=== PATIENT | female | born 1995 | race Caucasian/White ===

== ENCOUNTER 2017-02-20 18:48 | Emergency (ER) | payer SELFPAY ==
--- NOTE | 2017-02-20 19:55 | ER Document Report ---
HPI - HPI Patient complains to provider of: bump dorsal right wrist Onset: Last week Onset/Duration: Gradual Context: 21 yo female states that the bump on the dorsal left wrist is painful. wants it cut out. No hx ganglion cyst. States that it started over distal 2nd MC then moved down. - REPRODUCTIVE Reproductive: DENIES: : Past Medical History - General Information source: Patient - Social History Smoking Status: Unknown if Ever Smoked Frequency of alcohol use: None Drug Abuse: None Lives with: Family Family History: Reviewed & Not Pertinent - Medical History Medical History: Negative Surgical Hx: Negative Past Surgical History: Reports: Hx Oral Surgery - Immunizations Immunizations up to date: Yes Hx Diphtheria, Pertussis, Tetanus Vaccination: Yes Vertical Provider Document - CONSTITUTIONAL Agree With Documented VS: Yes Exam Limitations: No Limitations General Appearance: No Apparent Distress - INFECTION CONTROL TRAVEL OUTSIDE OF THE [place] IN LAST 30 DAYS: No - HEENT HEENT: Normocephalic - NECK Neck: Supple - MUSCULOSKELETAL/EXTREMETIES Musculoskeletal/Extremeties: MAEW, FROM, Tender - 8mm ganglion cyst radial side dorsal left wrist, not red. - NEURO Level of Consciousness: Awake, Alert Motor/Sensory: No Motor Deficit, No Sensory Deficit - DERM Integumentary: Warm, Dry Procedures - Immobilization Right Wrist Time completed: 20:35 Pre-Proc Neuro Vasc Exam: Normal Immobilizer type: Cock-up Performed by: PCT Post-Proc Neuro Vasc Exam: Normal Alignment checked and good: Yes Discharge - Discharge Clinical Impression: dorsal left wrist ganglion cyst Condition: Good Disposition: HOME, SELF-CARE Instructions: Ganglion Cyst ([facility]), Temporary Splint ([facility]), Acetaminophen, Anti- Inflammatory Medication ([facility]) Additional Instructions: splint for comfort motrin for pain call and schedule appointment with hand orthopedic surgeon to er any concerns Please complete the patient satisfaction survey if you get one, and return it.. If you do not receive a survey, then you can go to the [facility] website, [email or web address] and place your comments about your very good care. Thank you very much. It was a pleasure being your medical provider today. Prescriptions: Ibuprofen [Motrin 600 mg Tablet] 600 mg PO Q8HP PRN #30 tablet PRN Reason: Referrals: YOLETTE COLLADO DO [ACTIVE STAFF] - Follow up as needed
[2017-02-20 20:40] VITALS: BP 132/79
== END 2017-02-20 20:45 | disposition home or self-care (01) ==
LOC: ER 18:48
DX: M67.432 Ganglion, left wrist (principal)
CPT/HCPCS: 99283; L3984

== ENCOUNTER 2017-12-19 19:03 | Inpatient (IN) | payer MEDICAID ==
[~2017-12-19 19:03] MED LIST: RINGERS SOLUTION,LACTATED 1,000 ML IV ONE; RINGERS SOLUTION,LACTATED 1,000 ML IV PRN
[2017-12-19 20:03] LABS: HEMATOCRIT 34.2 % (36.0-47.0); HEMOGLOBIN 11.1 g/dL (12.0-15.5); MEAN CORPUSCULAR HEMOGLOBIN 27.5 pg (27.0-33.4); MEAN CORPUSCULAR HGB CONC 32.5 g/dL (32.0-36.0); MEAN CORPUSCULAR VOLUME 85 fl (80-97); PLATELET COUNT 307 10^3/uL (150-450); RED BLOOD COUNT 4.04 10^6/uL (3.72-5.28); RED CELL DISTRIBUTION WIDTH 15.7 % (11.5-14.0); WHITE BLOOD COUNT 15.9 10^3/uL (4.0-10.5)
[2017-12-19 20:08] LABS: APPEARANCE,URINE CLOUDY; BILIRUBIN,URINE NEGATIVE (NEGATIVE); COLOR,URINE YELLOW; GLUCOSE, URINE NEGATIVE (NEGATIVE); KETONES,URINE NEGATIVE (NEGATIVE); LEUKOCYTE ESTERASE,URINE LARGE (NEGATIVE); NITRITE,URINE NEGATIVE (NEGATIVE); PROTEIN,URINE NEGATIVE (NEGATIVE); UROBILINOGEN,URINE NEGATIVE mg/dL (<2.0)
[2017-12-19 20:24] LABS: URINE AMPHETAMINES SCREEN NEGATIVE; URINE BARBITURATES SCREEN NEGATIVE; URINE BENZODIAZEPINES SCREEN NEGATIVE; URINE COCAINE SCREEN NEGATIVE; URINE METHADONE SCREEN NEGATIVE; URINE PHENCYCLIDINE SCREEN NEGATIVE
[2017-12-19 20:44] LABS: URINE MARIJUANA (THC) SCREEN UNCONFIRMED POSITIVE
[2017-12-19] MEDS ORDERED: DINOPROSTONE 10 MG VAGINAL INSERT.SR ONE (21:15)
[2017-12-20] MEDS ORDERED: ZOLPIDEM TARTRATE 5 MG TABLET ONE (02:24)
[2017-12-20] MEDS ORDERED: NALBUPHINE HCL INJ 10 MG/1 ML AMPULE INJ ONE (05:15)
[2017-12-20] MEDS ORDERED: PROMETHAZINE HCL INJ 25 MG/1 ML VIAL IV ONE (05:15)
[2017-12-20] MEDS ORDERED: OXYTOCIN/NORMAL SALINE 20 UNIT/1,000 ML RTUINJ ONE ×3 (05:17→21:23)
[2017-12-20] MEDS ORDERED: NALBUPHINE HCL INJ 10 MG/1 ML AMPULE ONE (05:17)
[2017-12-20] MEDS ORDERED: PROMETHAZINE HCL INJ 25 MG/1 ML VIAL ONE ×2 (05:17→21:35)
[2017-12-20] MEDS ORDERED: OXYTOCIN/NORMAL SALINE 20 UNIT/1,000 ML RTUINJ IV PRN ×2 (09:21→21:19)
--- NOTE | 2017-12-20 09:33 | L&D Progress Notes ---
PROGRESS NOTES Datetime Report Generated by CPN: 12/20/2017 09:33 PROGRESS NOTE Impression: Normal Progression of Labor; Reassuring Heart Rate Procedures: Sterile Vag Exam Plan: Continue Present Management Vital Signs : Reviewed Comment: Pt uncomfortable with ctx. SVE as above may have epidural if desired Pitocin at 10 mu Continue present mgmt VAGINAL EXAM Dilatation: 5 Dilatation: 0 Effacement: 100 Effacement: 0 Station: 0 Station: 0 Contractions: 2 min MEMBRANES Pooling: Negative Membranes: Intact Membranes: Intact FETUS A Monitoring: External US Variability: Moderate 6-25bpm Accelerations: 15X15 Decelerations: None FHR Category: Category I : 41.0 Estimated Weight (gm): 4200 Presentation: Vertex SIGNATURE SIGNATURE: [id number] Assignment: Emma Costa MD Signature: with User ID: [email or web address] : with User ID: [email or web address]
[2017-12-20] MEDS ORDERED: EPHEDRINE SULFATE INJ 50 MG/1 ML AMPULE ONE ×2 (10:07→19:40)
[2017-12-20] MEDS ORDERED: FENTANYL/BUPIVACAINE/NS/PF 200 MCG/100 ML RTUINJ EPI ONE ×2 (10:07→14:23)
[2017-12-20] MEDS ORDERED: BUPIVACAINE HCL 0.25 % INJ/PF (2.5 MG/1 ML) 30 ML VIAL ONE ×2 (10:08→14:23)
[2017-12-20] MEDS ORDERED: FENTANYL CITRATE INJ/PF 100 MCG/2 ML AMPUL IV ONE (12:37)
[2017-12-20] MEDS ORDERED: FENTANYL CITRATE INJ/PF 100 MCG/2 ML AMPUL ONE ×4 (12:50→21:31)
--- NOTE | 2017-12-20 19:02 | L&D Progress Notes ---
PROGRESS NOTES Datetime Report Generated by CPDiane: 12/20/2017 19:02 PROGRESS NOTE Impression: Normal Progression of Labor Procedures: Sterile Vag Exam Plan: Deliver- Section Informed Consent Obtained: Vaginal Delivery; Risks, Benefits and Alternatives Discussed Vital Signs : Reviewed Comment: Pt with no cervical change (or descent) since 1330. Reviewed plan to continue pitocin. Reviewed with patient concerns regarding very prominent pubic bone and concern for not adequate outlet as casue of station -2 and no cervical change. Offered to have increase in pitocin after pitocin break and continue with IUPC and obtaining adequate MVUs for 2 hours and if no change then call section for arrest of Dilation. Pt declines this intervention and desires Primary section for maternal request and suspected CPD with macrosomia. The risks/benefits/alternatives were reviewed and patient allowed to ask questions. Pt's IV is infiltrated - will get restarted and notify OR team. realistic expectation for section and recovery were reviewed with the patient. VAGINAL EXAM Dilatation: 6 Effacement: 90 Station: -2 Contractions: q 2-3 FETUS A FHR - Baseline: 130 Monitoring: External US Variability: Moderate 6-25bpm Accelerations: 15X15 Decelerations: None FHR Category: Category I FETUS C SIGNATURE: [id number] Signature: with User ID: [email or web address]
[2017-12-20] MEDS ORDERED: CEFAZOLIN 2 GM/D5W RTU 2 GM/50 ML RTUPB IV ONE (19:12)
[2017-12-20] MEDS ORDERED: CITRIC ACID/SODIUM CITRATE ORAL SOLN 15 ML UDCUP ONE (19:12)
[2017-12-20] MEDS ORDERED: LIDOCAINE 2% INJ-PF (20 MG/ML) 10 ML AMPUL ONE ×2 (19:33→20:46)
[2017-12-20] MEDS ORDERED: OXYTOCIN 10 UNIT/ML VIAL ONE (19:39)
[2017-12-20] MEDS ORDERED: ONDANSETRON HCL INJ/PF 4 MG/2 ML SDV ONE (19:40)
[2017-12-20] MEDS ORDERED: MIDAZOLAM 2 MG/2 ML INJ ONE (19:40)
[2017-12-20] MEDS ORDERED: MORPHINE SULFATE 10 MG/ML INJ IV PRN (20:47)
[2017-12-20] MEDS ORDERED: FENTANYL CITRATE INJ/PF 100 MCG/2 ML AMPUL IV PRN ×3 (20:47)
[2017-12-20] MEDS ORDERED: PROMETHAZINE HCL INJ 25 MG/1 ML VIAL IV PRN ×2 (20:47→21:19)
[2017-12-20] MEDS ORDERED: MEPERIDINE HCL/PF INJ 25 MG/1 ML DISP.SYRIN IV PRN (20:47)
[2017-12-20] MEDS ORDERED: DIPHENHYDRAMINE HCL 50 MG/ML VIAL IV PRN (20:47)
--- NOTE | 2017-12-20 21:09 | Brief Operative Note ---
BRIEF OPERATIVE REPORT DATE OF SURGERY: 12/20/17 TIME OF SURGERY: 21:00 PREOPERATIVE DIAGNOSIS: Failed Induction of labor, Suspected macrosomia, suspected cephalopelvic Disproportion POSTOPERATIVE DIAGNOSIS: PARVEEN - delivered, malpresentation SURGEON: JADEN FISHER FINDINGS: VMI delivered from cephalic presentation however upon delivery presenting part was the posterior of head and back of neck (head was completely flexed with chin to chest), Apgars 9/9, weight 8#7oz, normal right fallopian tube and right ovary, left fallopian tube normal, left ovary with approximately 2cm simple appearing cyst (not removed), IVF 1800ml, UOP ml, EBL 700ml COMPLICATIONS: None ESTIMATED BLOOD LOSS: 700ml TISSUE REMOVED OR ALTERED: placenta and cord - not sent to pathology TECHNICAL PROCEDURE: Primary Section
[2017-12-20] MEDS ORDERED: ACETAMINOPHEN 100 ML IV PRN (21:19)
[2017-12-20] MEDS ORDERED: MEASLES,MUMPS&RUBELLA VACC/PF 0.5 ML VIAL SUBCUT PRN (21:19)
[2017-12-20] MEDS ORDERED: ACETAMINOPHEN 325 MG TABLET PO PRN (21:19)
[2017-12-20] MEDS ORDERED: OXYCODONE-ACETAMINOPHEN 5-325 MG TABLET PO PRN (21:19)
[2017-12-20] MEDS ORDERED: DIPH/PERTUSS(ACELL)/TETANUS VAC/PF 0.5 ML SYR (>=10YO) IM PRN (21:19)
[2017-12-20] MEDS ORDERED: SIMETHICONE 80 MG TAB.CHEW PO PRN (21:19)
[2017-12-20] MEDS ORDERED: HYDRALAZINE HCL INJ/PF 20 MG/1 ML SDV ONE (21:20)
[2017-12-20] MEDS ORDERED: HYDRALAZINE HCL INJ/PF 20 MG/1 ML SDV IV ONE (21:21)
--- NOTE | 2017-12-20 21:28 | Operative Report ---
Operative Report DATE OF SURGERY: 12/20/17 PREOPERATIVE DIAGNOSIS: Failed Induction of labor, Suspected macrosomia, suspected cephalopelvic Disproportion POSTOPERATIVE DIAGNOSIS: PARVEEN - delivered, malpresentation OPERATION: Primary Section SURGEON: JADEN FISHER ANESTHESIA: Epidural TISSUE REMOVED OR ALTERED: placenta and cord - not sent to pathology ESTIMATED BLOOD LOSS: 700ml INTRAOPERATIVE FINDINGS: VMI delivered from cephalic presentation however upon delivery presenting part was the posterior of head and back of neck (head was completely flexed with chin to chest), Apgars 9/9, weight 8#7oz, normal right fallopian tube and right ovary, left fallopian tube normal, left ovary with approximately 2cm simple appearing cyst (not removed), IVF 1800ml, UOP ml, EBL 700ml PROCEDURE: Anesthesia provider: [Domenico CARDOSO, Hermilo Osorio CRNA] Estimated blood loss: [700ml] Urine output: [250ml] IV fluids: [1800ml] Indications: [22yo at 41+1ega presented for IOL last evening with unfavorable cervix and cervidil initiated for cervical ripening. Cervidil removed after approximately 12 hours and then cervical change noted and AROM performed at approximately 1030. She recieved an epidural after AROM and refused villegas to gravity for several hours. Then epidural was removed and replaced and patient with improved pain control except patient with continued pain from villegas catheter. Minimal cervical change noted at 1330 and attempted to improve adequacy of her contractions. Reviewed contractions not adequate and MVUs only 95-100 and reviewed plan to increase pitocin to obtain adequate MVUs and then re-evaluate cervix after 2 hours of adequate contractions. However, patient declined to continue with induction and desired to proceed with Primary section due to no cervical change in 5 hours (but with inadequate contractions) and suspected cephalopelvic disproportion and possible macrosomia. Reviewed with patient previously during the day and again that pubic bone is very prominent and concern for adequacy of pelvis. No descent despite cervical dilation of 6cm as station still at -2. The risks, benefits, alternatives were reviewed and the patient desires to proceed with Primary section.] Procedure: The patient was taken to the operating room where epidural anesthesia was found to be adequate. She was then prepped and draped in the normal sterile fashion and placed in the dorsal supine position with a leftward tilt. A Pfannenstiel skin incision was then made and carried through to the underlying layers of the fascia with the scalpel. The fascia was incised in the midline and the incision extended laterally with the Rodrigues scissors. The superior aspect of the fascial incision was then grasped with Narendra clamps elevated and the underlying rectus muscles dissected off [bluntly]. Attention was then turned to the inferior aspect of the fascial incision which in a similar fashion was grasped, tented up with Narendra clamps, and the rectus muscles dissected off [bluntly]. The rectus muscles were then in the midline and the peritoneum at the amount identified and entered [bluntly]. The peritoneal incision was then extended superiorly and inferiorly with good visualization of the bladder. The bladder blade was inserted and the vesicouterine peritoneum identified grasped with Bermudian pickups and entered sharply with the Metzenbaum scissors. This incision was then extended laterally with the Metzenbaum scissors and a bladder flap created digitally. The bladder blade was then reinserted and the lower uterine segment incised in a transverse fashion with the scalpel. The uterine incision was then extended bluntly. The bladder blade was removed and the 's head was delivered from cephalic presentation atraumatically (malpresentation). The nose and mouth were suctioned and the cord doubly clamped and cut. And the infant was handed off to waiting pediatricians. The placenta was then delivered spontaneously and the uterus exteriorized and cleared of all clots and debris. The uterine incision was then repaired with 1- 0 Vicryl in a running locked fashion. A second layer of the same suture was used to obtain hemostasis via imbrication of the initial layer. The bladder flap was then repaired with 3-0 chromic in a running fashion. The uterus was returned to the patient's abdomen and Interceed was placed overlying the uterine incision to prevent adhesions. The gutters were cleared of all clots and debris. All operative sites were noted to be hemostatic. The fascia was reapproximated with 0 Vicryl in a running fashion from each lateral edge to the midline. The skin was closed with 3-0 Monocryl in a running subcuticular fashion with overlying Dermabond for additional dressing as well as wound closure. The patient tolerated the procedure well. Sponge lap needle and instrument counts are correct times two. 2 g of Ancef were given prior to skin incision. The patient was taken to the recovery area awake and in stable condition.
[2017-12-20] MEDS ORDERED: DIPHENHYDRAMINE HCL 50 MG/ML VIAL ONE (21:31)
[2017-12-20] MEDS ORDERED: ACETAMINOPHEN 100 ML IV ONE (21:56)
[2017-12-20] MEDS ORDERED: KETOROLAC TROMETHAMINE INJ/PF 30 MG/1 ML SDV ONE (22:06)
[2017-12-20] MEDS: KETOROLAC TROMETHAMINE INJ/PF 30 MG/1 ML SDV IV SCH (22:07)
--- NOTE | 2017-12-20 22:43 | Delivery Summary ---
Del Sum A-C Datetime Report Generated by CPN: 12/20/2017 22:42 DELIVERY PERSONNEL DELIVERY PERSONNEL: [id number] Delivery Doctor:: Emma Costa MD Anesthesiologist:: Oz Acuña MD FLOORPERSON:: Hermilo Osorio CRNA Labor and Delivery Nurse:: CLAUDIA Dobbins Labor and Delivery Nurse:: Hilary Villeda RN Neonatal Nurse Practitioner:: QUANG Iglesias Nursery Nurse:: Vi Valdes RN Animal Shelter Supervisor/SOA ARCHITECT: ST Shantanu Animal Shelter Supervisor/SOA ARCHITECT: Marisela Jiménez, ELECTRICIAN SUPERVISOR SUBSTATION Additional Personnel: : Virgil Cobb CNA MATERNAL INFORMATION Delivery Anesthesia: Epidural Maternal Complications: None LABOR SUMMARY EDC: 12/12/2017 00:00 No. Babies in Womb: 1 Attempted: No Labor Anesthesia: Epidural LABOR INFORMATION Reason for Induction: Post Dates Onset of Labor: 12/20/2017 09:08 Cervical Ripening Agents: Cervidil Oxytocin: Induction Group B Beta Strep: negative Antibiotics # of Doses: 1 Antibiotics Time of Last Dose: ancef preop @1930 Name of Antibiotic Given: ancef 2 gm Steroids Given: None Reason Steroids Not Administered: Not Applicable MEMBRANES Membranes Rupture Method: Artificial Rupture of Membranes: 12/20/2017 10:30 Length of Rupture (hr): 9.63 Amniotic Fluid Color: Clear Amniotic Fluid Amount: Moderate Amniotic Fluid Odor: Normal STAGES OF LABOR Stage 3 hr: 0 Stage 3 min: 1 Total Time in Labor hr: 11 Total Time in Labor min: 1 VAGINAL DELIVERY Episiotomy: None Laceration #1: None Laceration Extension #1: N/A Laceration Repair: Not Applicable Initial Vag Sponge Count: 20 Final Vag Sponge Count: 20 Initial Vag Sharps Count: 8 Final Vag Sharps Count: 9 Sponge Count Correct: Yes Sharps Count Correct: Yes CSECTION DELIVERY Primary Indication: Failed Induction Other Primary Indication: cpd Secondary Indication: maternal request CSection Urgency: Emergency CSection Incidence: N/A Labor: N/A Elective: N/A CSection Incision: Lower Uterine Transverse BABY A INFORMATION Infant Delivery Date/Time: 12/20/2017 20:08 Method of Delivery: Born in Route : No : N/A Forceps: N/A Vacuum Extraction: N/A Shoulder Dystocia : No PRESENTATION/POSITION BABY A Presentation: Cephalic Cephalic Presentation: Vertex Breech Presentation: N/A PLACENTA INFORMATION BABY A Placenta Delivery Time : 12/20/2017 20:09 Placenta Method of Delivery: Manual Removal Placenta Status: Delivered SCORES BABY A Heart Rate 1 min: >100 bpm Resp Effort 1 min: Good Cry Reflex Irritability 1 min: Cough or Sneeze or Pulls Away Muscle Tone 1 min: Active Motion Color 1 min: Body [place], Extremities Blue Resuscitation Effort 1 min: Tactile Stimulation SCORE 1 MIN: 9 Heart Rate 5 min: >100 bpm Resp Effort 5 min: Good Cry Reflex Irritability 5 min: Cough or Sneeze or Pulls Away Muscle Tone 5 min: Active Motion Color 5 min: Body [place], Extremities Blue Resuscitation Effort 5 min: Tactile Stimulation SCORE 5 MIN: 9 INFORMATION BABY A Gestational Age at Delivery: 41.1 Gestational Status: Late Term- 41- 41.6 Weeks Outcome : Liveborn Infant Condition : Stable Sex: Male IDENTIFICATION BABY A Infant Verification Date/Time: 12/20/2017 22:39 ID Band Number: [id number] Mother's Name Verified: Yes Infant RN Verifying : D Bellavance RNC/Brigitte Villeda RN WEIGHT/LENGTH BABY A Infant Birthweight (gm): 3820 Weight (lb): 8 Weight (oz): 7 Infant Length (in): 20.50 Infant Length (cm): 52.07 CORD INFORMATION BABY A No. Cord Vessels: 3 Nuchal Cord : N/A Cord Blood Taken: Yes-For Storage (Mom's Blood type +) Infant Suction: Mouth; Nose ASSESSMENT BABY A Infant Complications: None Physical Findings at Delivery: Within Normal Limits Respirations: Appears Normal Skin to Skin: No Er Nurse/ALS Called : No Care By: cristobal BANG/Jorje Stafford [facility] Transferred To: [facility] BABY B INFORMATION : N/A
--- NOTE | 2017-12-20 23:23 | Admission Physical ---
Datetime Report Generated by CPN: 12/20/2017 23:23 CURRENT ADMISSION Chief Complaint: Scheduled Induction of Labor Indication for Induction: Postterm Indication for Induction: Postterm, Intrauterine ; Intact Membranes; Induction of Labor Admit Plan: Admit to Unit; Initiate Labor Induction Protocol ALLERGIES Medication Allergies: No Medication Allergies: No Known Allergies (10/20/2015) Latex: No Latex Allergies Food Allergies: None Environmental Allergies: None OBSTETRICAL HISTORY EDC: 12/12/2017 00:00 : 2 Para: 0 Term: 0 : 0 SAB: 0 IAB: 1 Ectopic: 0 Livin Cesareans: 0 VBACs: 0 Multiple Births: 0 Gestational Diabetes: No Rh Sensitization: No Incompetent Cervix: No FARAZNA: No Infertility: No ART Treatment: No Uterine Anomaly: No IUGR: No Hx Previous C/S: No Macrosomia: No Hx Loss/Stillborn: No PIH: No Hx : No Placenta Previa/Abruption: No Depression/PP Depression: No PTL/PROM: No Post Hemorrhage: No Current Procedures: Ultrasound; NST Obstetrical History Comments: G1: 2012 6 wk EAB G2: Current SEE RECORDS Alcohol: No Marijuana : Yes Marijuana Comments: positive THC 12/19/17, denies use Cocaine: No Other Illicit Drugs: No Cigarettes: Never Smoker. [id number] MEDICAL HISTORY Diabetes: No Blood Transfusion: No Pulmonary Disease (Asthma, TB): No Breast Disease: No Hypertension: No Sales Representative Health Insurance Surgery: No Heart Disease: No Hosp/Surgery: No Autoimmune Disorder: No Anesthetic Complications: No Kidney Disease: Yes Abnormal Pap Smear: No Neuro/Epilepsy: No Psychiatric Disorders: Yes Other Medical Diseases: No Hepatitis/Liver Disease: No Significant Family History: No Varicosities/Phlebitis: No Trauma/Violence : No Thyroid Dysfunction: No Medical History Comments: anxiety; freq UTIs (Annotations: Data stored by [facility] on behalf of user) INFECTIOUS HISTORY Gonorrhea: No Genital Herpes: No Chlamydia: No Tuberculosis: No Syphilis: No Hepatitis: No HIV/AIDS Exposure: No Rash or Viral Illness: No HPV: No Infectious History Comments: Trich in 04/2017 PHYSICAL EXAM General: Normal HEENT: Normal Neurologic: Normal Thyroid: Normal Heart: Normal Lungs: Normal Breast: Deferred Back: Normal Abdomen: Normal Genitourinary Exam: Normal Extremities: Normal DTRs: Normal Pelvic Type: Adequate Vital Signs: Reviewed VAGINAL EXAM Dilatation: 6 Dilatation: 5 Dilatation: 0 Effacement: 90 Effacement: 100 Effacement: 0 Station: -2 Station: 0 Station: 0 Contraction Comments: q 2-3 Contraction Comments: 2 min MEMBRANES Pooling: Negative Membranes: Intact Membranes: Intact FETUS A EGA: 41.0 FHR- Baseline: 130 Variability: Moderate 6-25bpm FHR Category: Category I Estimated Weight (gm): 4200 Presentation: Vertex Admit Comment: EFW is 9 lbs PLANS FOR LABOR AND DELIVERY Labor and Delivery: None Pain Management: Epidural Feeding Preference: Breast Benefit of Breast Feed Discussed: Yes Circumcision: No INFORMED CONSENT Informed Consent Obtained: Vaginal Delivery; Risks, Benefits and Alternatives Discussed Signature: with User ID: [email or web address]
[2017-12-21] MEDS: HYDROMORPHONE HCL INJ/PF 2 MG/ML AMPULE IV PRN ×2 (00:24→02:27)
[2017-12-21] MEDS ORDERED: MISOPROSTOL 0.2 MG TABLET ONE (01:20)
[2017-12-21] MEDS ORDERED: MISOPROSTOL 0.2 MG TABLET PR ONE (01:29)
[2017-12-21] MEDS ORDERED: OXYTOCIN/NORMAL SALINE 20 UNIT/1,000 ML RTUINJ INJ PRN (04:51)
[2017-12-21] MEDS: KETOROLAC TROMETHAMINE INJ/PF 30 MG/1 ML SDV IV SCH ×2 (06:20→13:45)
[2017-12-21 07:12] LABS: HEMATOCRIT 20.4 % (36.0-47.0); MEAN CORPUSCULAR HEMOGLOBIN 27.9 pg (27.0-33.4); MEAN CORPUSCULAR HGB CONC 33.2 g/dL (32.0-36.0); MEAN CORPUSCULAR VOLUME 84 fl (80-97); PLATELET COUNT 224 10^3/uL (150-450); RED BLOOD COUNT 2.42 10^6/uL (3.72-5.28); RED CELL DISTRIBUTION WIDTH 15.5 % (11.5-14.0); WHITE BLOOD COUNT 23.3 10^3/uL (4.0-10.5)
[2017-12-21 07:16] LABS: HEMOGLOBIN 6.8 g/dL (12.0-15.5)
[2017-12-21] MEDS: OXYCODONE-ACETAMINOPHEN 5-325 MG TABLET PO PRN ×3 (09:41→20:48)
[2017-12-21] MEDS: PRENATAL VITAMIN W DHA CAPSULE PO SCH (09:41)
[2017-12-21] MEDS: DOCUSATE SODIUM 100 MG CAPSULE PO SCH ×2 (09:41→16:43)
--- NOTE | 2017-12-21 09:46 | PDOC PROGRESS REPORT ---
Subjective-OB Subjective: Post Delivery Day: 22 year old. Denies any needs at this time Physical Exam (OB) Vital Signs: Temp Pulse Resp BP Pulse Ox 98.4 F 113 H 21 H 139/83 H 99 12/21/17 07:30 12/21/17 07:30 12/21/17 07:30 12/21/17 07:30 12/21/17 09:40 Intake & Output 12/20/17 12/21/17 12/22/17 06:59 06:59 06:59 Intake Total 300 Output Total 300 Balance 0 Weight 80.7 kg - Dressing Removed: No - open to air Incision: Open, Well Approximated Closure Type: Surgical Glue - Lochia Lochia Amount: Scant < 10 ml Lochia Color: Rubra/Red - Abdomen Description: Tender, Soft Hernia Present: No Bowel Sounds: Normoactive Flatus Presence: Absent Stool: No Fundal Description: Firm, Midline Describe if Not Midline: deviated right side Fundal Height: u/u - u/2 - Respiratory Breath sounds: Clear Objective-Diagnostic Laboratory: 12/21/17 06:48 12/21/17 06:48 WBC 23.3 H RBC 2.42 L Hgb 6.8 L D Hct 20.4 L MCV 84 MCH 27.9 MCHC 33.2 RDW 15.5 H Plt Count 224
[2017-12-21] MEDS ORDERED: IBUPROFEN 800 MG TABLET ONE (19:20)
[2017-12-21] MEDS ORDERED: IBUPROFEN 800 MG TABLET PO SCH ×3 (21:00→22:00)
[2017-12-22] MEDS ORDERED: IBUPROFEN 800 MG TABLET PO ONE (00:30)
[2017-12-22] MEDS: OXYCODONE-ACETAMINOPHEN 5-325 MG TABLET PO PRN ×2 (00:59→07:36)
[2017-12-22] MEDS: IBUPROFEN 800 MG TABLET PO SCH ×2 (05:35→11:26)
[2017-12-22] MEDS: DOCUSATE SODIUM 100 MG CAPSULE PO SCH (09:13)
[2017-12-22] MEDS: PRENATAL VITAMIN W DHA CAPSULE PO SCH (09:13)
--- NOTE | 2017-12-22 12:54 | PDOC PROGRESS REPORT ---
Subjective-OB Subjective: Post Delivery Day: 22 year old. Denies any needs at this time. Ready to go home. Physical Exam (OB) Vital Signs: Temp Pulse Resp BP Pulse Ox 98.1 F 95 20 119/67 98 12/22/17 03:56 12/22/17 03:56 12/22/17 03:56 12/22/17 03:56 12/21/17 23:52 Intake & Output 12/21/17 12/22/17 12/23/17 06:59 06:59 06:59 Intake Total 300 Output Total 300 1175 Balance 0 -1175 - PIH/Pre-Eclampsia DTR's: 2 + Clonus: Negative Headache: Absent Epigastric Pain: No Visual Changes: No - Dressing Removed: Yes Incision: Open Closure Type: Surgical Glue - Lochia Lochia Amount: Scant < 10 ml Lochia Color: Rubra/Red - Abdomen Description: Soft Hernia Present: No Bowel Sounds: Normoactive Flatus Presence: Present Stool: No Fundal Description: Firm, Midline Describe if Not Midline: deviated right side Fundal Height: u/u - u/2 Objective-Diagnostic Laboratory: 12/21/17 06:48
--- NOTE | 2017-12-22 13:04 | PDOC DISCHARGE SUMMARY ---
Final Diagnosis Discharge Date: 12/22/17 - Final Diagnosis (1) Malpresentation of fetus, antepartum Is this a current diagnosis for this admission?: Yes (2) History of anxiety Is this a current diagnosis for this admission?: Yes (3) THC use in Is this a current diagnosis for this admission?: Yes (4) Is this a current diagnosis for this admission?: Yes (5) Delivery by emergency caesarean section Is this a current diagnosis for this admission?: Yes (6) Post-term , 40-42 weeks of gestation Is this a current diagnosis for this admission?: Yes Discharge Data - Discharge Medication Prescriptions: Oxycodone HCl/Acetaminophen [Percocet 5-325 mg Tablet] 1 tab PO Q4HP PRN #20 tablet PRN Reason: Docusate Sodium [Colace 100 mg Capsule] 100 mg PO BID #30 capsule Ferrous Sulfate 325 mg PO BID #60 tablet. Ibuprofen [Motrin 800 mg Tablet] 800 mg PO Q6 #30 tablet Home Medications: Vit/Iron Fum/Folic AC [ Tablet] 1 each PO DAILY 12/19/17 Docusate Sodium [Colace 100 mg Capsule] 100 mg PO BID #30 capsule 12/22/17 Ferrous Sulfate 325 mg PO BID #60 tablet. 12/22/17 Ibuprofen [Motrin 800 mg Tablet] 800 mg PO Q6 #30 tablet 12/22/17 Oxycodone HCl/Acetaminophen [Percocet 5-325 mg Tablet] 1 tab PO Q4HP PRN #20 tablet 12/22/17 Gestational Age: 41.1 wks Reason(s) for Admission: Induction of Labor Procedures: Ultrasound Intrapartum Procedure(s): : Low Cervical, Transverse - Data Baby 1 Male at 1 minute: 9 at 5 minutes: 9 Weight: 3.827 kg Home with Mother: Yes Complications: No - Diagnosis Test Laboratory: Temp Pulse Resp BP Pulse Ox 98.1 F 95 20 119/67 98 12/22/17 03:56 12/22/17 03:56 12/22/17 03:56 12/22/17 03:56 12/21/17 23:52 12/19/17 12/19/17 12/21/17 19:20 19:40 06:48 RBC 4.04 2.42 L Hgb 11.1 L 6.8 L D Hct 34.2 L 20.4 L Urine Opiates Screen NEGATIVE - Discharge information/Instructions Discharge Activity: Activity As Tolerated, Balance Activity w/Rest, No Lifting Over 10 Pounds, No Lifting/Push/Pulling, Pelvic Rest, Slowly Increase Activity, No tub bath Discharge Diet: Regular Disposition: HOME, SELF-CARE Follow [facility] with: [facility] in: 1, Weeks
[2017-12-22 13:15] VITALS: BP 136/76
[2017-12-22 14:12] LABS: HEMATOCRIT 19.9 % (36.0-47.0); MEAN CORPUSCULAR HEMOGLOBIN 27.9 pg (27.0-33.4); MEAN CORPUSCULAR HGB CONC 33.2 g/dL (32.0-36.0); MEAN CORPUSCULAR VOLUME 84 fl (80-97); PLATELET COUNT 271 10^3/uL (150-450); RED BLOOD COUNT 2.36 10^6/uL (3.72-5.28); RED CELL DISTRIBUTION WIDTH 15.6 % (11.5-14.0)
[2017-12-22 14:17] LABS: HEMOGLOBIN 6.6 g/dL (12.0-15.5)
== END 2017-12-22 14:45 | disposition home or self-care (01) | DRG 765 ==
LOC: LR 19:03 → 2S 12-20 23:28
PROVIDERS: ADMIT Obstetrics & Gynecology; ATTEND Obstetrics & Gynecology
PROC: 4A1HXCZ Monitoring of Products of Conception, Cardiac Rate, External Approach (ICD-10-PCS; 2017-12-19)
PROC: 10D00Z1 Extraction of Products of Conception, Low, Open Approach (ICD-10-PCS; principal; 2017-12-20)
PROC: 3E0P7VZ Introduction of Hormone into Female Reproductive, Via Natural or Artificial Opening (ICD-10-PCS; 2017-12-20)
DX: O61.0 Failed medical induction of labor (principal); O99.324 Drug use complicating childbirth; O48.0 Post-term pregnancy; O32.9XX0 Maternal care for malpresentation of fetus, unspecified, not applicable or unspecified; O99.344 Other mental disorders complicating childbirth; F12.980 Cannabis use, unspecified with anxiety disorder; Z79.899 Other long term (current) drug therapy; Z3A.41 41 weeks gestation of pregnancy; Z37.0 Single live birth
CPT/HCPCS: 1961; 36415; 80307; 81005; 85027; 86592; 86850; 86900; 86901; 94760; 94799; C1765; G0480; J0131; J0360; J0690; J1170; J1200; J1885; J2250; J2300; J2405; J2550; J2590; J3010; J3490

== ENCOUNTER 2018-04-12 11:22 | Emergency (ER) | payer MEDICAID ==
--- NOTE | 2018-04-12 12:19 | ER Document Report ---
HPI - HPI Patient complains to provider of: Sore throat, cough Onset: Other - 2 weeks Onset/Duration: Persistent Quality of pain: Achy Pain Level: 3 Context: Patient presents complaining of cough and sore throat for the past 2 weeks. Patient states today her voice was hoarse and she needed a note for her employer. Patient denies any fever. Associated Symptoms: Nonproductive cough, Sore throat. denies: Fever, Headache , Vomiting Exacerbated by: Denies Relieved by: Denies Similar symptoms previously: Yes Recently seen / treated by doctor: No - ROS ROS below otherwise negative: Yes Systems Reviewed and Negative: Yes All other systems reviewed and negative - CONSTITUTIONAL Constitutional: DENIES: Fever - EENT EENT: REPORTS: Sore Throat - CARDIOVASCULAR Cardiovascular: DENIES: Chest pain - RESPIRATORY Respiratory: REPORTS: Coughing. DENIES: Trouble Breathing - GASTROINTESTINAL Gastrointestinal: DENIES: Abdominal Pain, Nausea, Patient vomiting, Diarrhea - REPRODUCTIVE Reproductive: DENIES: : - MUSCULOSKELETAL Musculoskeletal: DENIES: Back Pain - DERM Skin Color: Normal Skin Problems: None Past Medical History - General Information source: Patient - Social History Smoking Status: Never Smoker Frequency of alcohol use: None Drug Abuse: None Occupation: Housekeeping Lives with: Spouse/Significant other Family History: Reviewed & Not Pertinent - Medical History Medical History: Negative Past Surgical History: Reports: Hx Oral Surgery - Immunizations Immunizations up to date: Yes Hx Diphtheria, Pertussis, Tetanus Vaccination: Yes Vertical Provider Document - CONSTITUTIONAL Agree With Documented VS: Yes Exam Limitations: No Limitations General Appearance: WD/WN, No Apparent Distress - INFECTION CONTROL TRAVEL OUTSIDE OF THE [place] IN LAST 30 DAYS: No - HEENT HEENT: Atraumatic, Normocephalic, Pharyngeal Tenderness. negative: Pharyngeal Exudate, Pharyngeal Erythema - NECK Neck: Normal Inspection, Supple. negative: Lymphadenopathy-Left, Lymphadenopathy-Right - RESPIRATORY Respiratory: No Respiratory Distress, Chest Non-Tender, Rhonchi. negative: Rales, Wheezing - CARDIOVASCULAR Cardiovascular: Regular Rate, Regular Rhythm, No Murmur - BACK Back: Normal Inspection - MUSCULOSKELETAL/EXTREMETIES Musculoskeletal/Extremeties: MIKE HONEYCUTT - NEURO Level of Consciousness: Awake, Alert, Appropriate Motor/Sensory: No Motor Deficit - DERM Integumentary: Warm, Dry, No Rash Course - Re-evaluation Re-evalutation: 04/12/18 12:56 Patient states that she does not want to wait here any longer would like to leave without waiting for results. Patient's respirations even and unlabored, patient nontoxic in appearance. Discussed worsening symptoms that patient should return immediately for. - Vital Signs Vital signs: Temp Pulse Resp BP Pulse Ox 98.3 F 87 16 130/84 H 99 04/12/18 11:35 04/12/18 11:35 04/12/18 11:35 04/12/18 11:35 04/12/18 11:35 - Diagnostic Test Radiology reviewed: Pending, Image reviewed Discharge - Discharge Clinical Impression: Sore throat Upper respiratory infection Qualifiers: URI type: unspecified URI Qualified Code(s): J06.9 - Acute upper respiratory infection, unspecified Condition: Stable Disposition: HOME, SELF-CARE Instructions: Sore Throat ([facility]), Upper Respiratory Illness ([facility]) Additional Instructions: Return immediately for any new or worsening symptoms Followup with your primary care provider, call tomorrow to make a followup appointment Prescriptions: Benzonatate [Tessalon Perle 100 mg Capsule] 100 mg PO Q8HP PRN #20 cap PRN Reason: Naproxen [Naprosyn 250 Nmg Tablet] 1 tab PO BID #14 tablet Forms: Return to Work Referrals: [facility] [Provider Group] - Follow up as needed [facility] [Provider Group] - Follow up as needed
--- NOTE | 2018-04-12 13:03 | RADIOLOGY REPORT (SQ) ---
EXAM DESCRIPTION: CHEST 2 VIEWS COMPLETED DATE/TIME: 04/12/2018 12:55 pm REASON FOR STUDY: cough COMPARISON: None. EXAM PARAMETERS: NUMBER OF VIEWS: two views TECHNIQUE: Digital Frontal and Lateral radiographic views of the chest acquired. RADIATION DOSE: NA LIMITATIONS: none FINDINGS: LUNGS AND PLEURA: No opacities, masses or pneumothorax. No pleural effusion. MEDIASTINUM AND HILAR STRUCTURES: No masses or contour abnormalities. HEART AND VASCULAR STRUCTURES: Heart normal size. No evidence for failure. BONES: No acute findings. HARDWARE: None in the chest. OTHER: No other significant finding. IMPRESSION: NO ACUTE RADIOGRAPHIC FINDING IN THE CHEST. TECHNICAL DOCUMENTATION: JOB ID: [id number] [employer]- All Rights Reserved Reading location - IP/workstation name: [email or web address]
[2018-04-12 13:12] VITALS: BP 139/93
== END 2018-04-12 13:10 | disposition home or self-care (01) ==
LOC: ER 11:22
DX: J02.9 Acute pharyngitis, unspecified (principal); J06.9 Acute upper respiratory infection, unspecified; R05 Cough
CPT/HCPCS: 71046; 87070; 87077; 99283

== ENCOUNTER 2019-05-15 13:12 | Emergency (ER) | payer SELFPAY ==
[2019-05-15 13:46] VITALS: BP 128/78
--- NOTE | 2019-05-15 14:46 | ER Document Report ---
ED GI/ - General Chief Complaint: Abdominal Pain Stated Complaint: LOWER ABDOMINAL PAIN Time Seen by Provider: 05/15/19 14:09 Primary Care Provider: [facility] [Provider Group] - Follow up as needed [facility] [Provider Group] - Follow up as needed Mode of Arrival: Ambulatory Information source: Patient Notes: 24-year-old female presents to ED for complaint of abdominal pain. She states she thinks she feels a lump under her . She had a baby in December with a . There is no drainage redness or pain at this time at that area. She did tell the nurse that she is also had some frequency and pain with urination. Is alert and oriented respirations regular and unlabored speaking with full sentences walks with even steady gait. TRAVEL OUTSIDE OF THE [place] IN LAST 30 DAYS: No - HPI Patient complains to provider of: Abdominal pain. No: Diarrhea, Vomiting Onset: Other - 2 weeks Timing/Duration: Intermittent Quality of pain: Cramping, Sharp Severity at maximum: Severe Severity in ED: Moderate Pain Level: 2 Location: LLQ, RLQ, Suprapubic Vaginal bleeding (Compared to normal period): None Exacerbated by: Movement, Walking Relieved by: Denies Similar symptoms previously: Yes Recently seen / treated by doctor: No - Related Data Allergies/Adverse Reactions: No Known Allergies Allergy (Verified 10/20/15 11:18) Past Medical History - General Information source: Patient - Social History Smoking Status: Never Smoker Frequency of alcohol use: None Drug Abuse: None Lives with: Family Family History: Reviewed & Not Pertinent Patient has suicidal ideation: No Patient has homicidal ideation: No - Past Medical History Cardiac Medical History: Reports: None Pulmonary Medical History: Reports: None EENT Medical History: Reports: None Neurological Medical History: Reports: None Renal/ Medical History: Reports: None Malignancy Medical History: Reports: None GI Medical History: Reports: None Musculoskeletal Medical History: Reports None Skin Medical History: Reports None Psychiatric Medical History: Reports: None Traumatic Medical History: Reports: None Infectious Medical History: Reports: None Past Surgical History: Reports: Hx Section, Hx Oral Surgery - Immunizations Immunizations up to date: Yes Hx Diphtheria, Pertussis, Tetanus Vaccination: Yes Review of Systems - Review of Systems Constitutional: No symptoms reported EENT: No symptoms reported Cardiovascular: No symptoms reported Respiratory: No symptoms reported Gastrointestinal: Abdominal pain Genitourinary: Frequency, Urgency Female Genitourinary: No symptoms reported Musculoskeletal: No symptoms reported Skin: No symptoms reported Hematologic/Lymphatic: No symptoms reported Neurological/Psychological: No symptoms reported -: Yes All other systems reviewed and negative Physical Exam - Vital signs Vitals: Temp Pulse Resp BP Pulse Ox 99.4 F 88 16 128/78 H 97 05/15/19 13:45 05/15/19 13:45 05/15/19 13:45 05/15/19 13:45 05/15/19 13:45 Interpretation: Normal - General General appearance: Appears well, Alert - HEENT Head: Normocephalic, Atraumatic Eyes: Normal Pupils: PERRL - Respiratory Respiratory status: No respiratory distress Chest status: Nontender Breath sounds: Normal Chest palpation: Normal - Cardiovascular Rhythm: Regular Heart sounds: Normal auscultation Murmur: No - Abdominal Inspection: Normal Distension: No distension Bowel sounds: Normal Tenderness: Tender - suprapubic Organomegaly: No organomegaly - Back Back: Normal, Nontender - Extremities General upper extremity: Normal inspection, Nontender, Normal color, Normal ROM, Normal temperature General lower extremity: Normal inspection, Nontender, Normal color, Normal ROM, Normal temperature, Normal weight bearing. No: Julio's sign - Neurological Neuro grossly intact: Yes Cognition: Normal Orientation: AAOx4 Demorest Coma Scale Eye Opening: Spontaneous Larry Coma Scale Verbal: Oriented Demorest Coma Scale Motor: Obeys Commands Demorest Coma Scale Total: 15 Speech: Normal Motor strength normal: LUE, RUE, LLE, RLE Sensory: Normal - Psychological Associated symptoms: Normal affect, Normal mood - Skin Skin Temperature: Warm Skin Moisture: Dry Skin Color: Normal Course - Re-evaluation Re-evalutation: 05/15/19 20:56 Urine was negative. Patient was encouraged to increase her fluid intakes. Patient was given a list of local primary doctors to follow-up with. Patient was afebrile nontoxic abdomen soft bowel sounds active. There was no need for CTs as there was no acute symptoms noted. Patient has been having pain off and on for several weeks. Patient was instructed to follow-up with a local doctor. - Vital Signs Vital signs: Temp Pulse Resp BP Pulse Ox 99.4 F 88 16 128/78 H 97 05/15/19 13:45 05/15/19 13:45 05/15/19 13:45 05/15/19 13:45 05/15/19 13:45 - Laboratory Laboratory results interpreted by me: 05/15/19 12:43 Ur Leukocyte Esterase TRACE H Discharge - Discharge Clinical Impression: Urinary frequency Abdominal pain Qualifiers: Abdominal location: lower abdomen, unspecified Qualified Code(s): R10.30 - Lower abdominal pain, unspecified Condition: Stable Disposition: HOME, SELF-CARE Additional Instructions: ABDOMINAL PAIN: There are many causes of abdominal pain. Pain can mean a serious problem requiring surgery (such as appendicitis). It can also be an innocent problem that goes away on its own (such as a viral infection). Often, time must pass to determine the cause of pain. The physician does not feel that hospitalization is necessary, at present. Things may change within the next 24 hours. Call the doctor or come back for re- examination if any problems occur, such as: (1) Pain that becomes more severe, steady, or becomes concentrated in one specific area. Also, pain that is more severe with movement or coughing. (2) Vomiting that persists or becomes more frequent. (3) Blood in the vomitus, urine, or bowel movements. Blood in the stool may have a tarry or black appearance. (4) Shaking chills or fever greater than 100 degrees F. (5) The abdomen becomes more distended or swollen. (6) Bowel movements cease. (7) Failure to improve as expected. NORMAL EXAM AND WORKUP: At this time, your examination and workup show no significant abnormality. No significant abnormal physical findings are noted. All laboratory, EKG, and imaging (x-ray, CT scans, ultrasound) studies that were ordered show no significant abnormality. Although your examination and all studies that were ordered showed no significant abnormal finding, there are no examinations and no studies that are 100% accurate. There is always the possibility that some abnormality could exist and not be detected with physical examination or within the limits and capabilities of laboratory and other studies. You should return or follow up as you were instructed on your visit today for further evaluation if your symptoms do not resolve. FOLLOW-UP CARE: If you have been referred to a physician for follow-up care, call the physicians office for an appointment as you were instructed or within the next two days. If you experience worsening or a significant change in your symptoms, notify the physician immediately or return to the Emergency Department at any time for re-evaluation. Referrals: [facility] [Provider Group] - Follow up as needed [facility] [Provider Group] - Follow up as needed
[2019-05-15 15:13] LABS: APPEARANCE,URINE SLIGHTLY-CLOUDY; BILIRUBIN,URINE NEGATIVE (NEGATIVE); COLOR,URINE YELLOW; GLUCOSE, URINE NEGATIVE (NEGATIVE); KETONES,URINE NEGATIVE (NEGATIVE); LEUKOCYTE ESTERASE,URINE TRACE (NEGATIVE); NITRITE,URINE NEGATIVE (NEGATIVE); PROTEIN,URINE NEGATIVE (NEGATIVE); UROBILINOGEN,URINE NEGATIVE mg/dL (<2.0)
== END 2019-05-15 15:40 | disposition home or self-care (01) ==
LOC: ER 13:12
DX: R10.32 Left lower quadrant pain (principal); R10.31 Right lower quadrant pain; R35.0 Frequency of micturition; R39.15 Urgency of urination; R30.0 Dysuria; Z98.890 Other specified postprocedural states
CPT/HCPCS: 81001; 81025; 87086; 99284

== ENCOUNTER → 2020-02-13 | Outpatient (CLI) | payer MEDICAID ==
--- NOTE | 2020-02-13 14:18 | RADIOLOGY REPORT (SQ) ---
EXAM DESCRIPTION: U/S OB 14+ TRNABD 1GES W/O DOP COMPLETED DATE/TIME: 02/13/2020 2:07 pm REASON FOR STUDY: Z34.02 ENCNTR FOR SUPRVSN OF NORMAL FIRST PREG, SECOND TRIMESTER Z34.02 ENCNTR FO R SUPRVSN OF NORMAL FIRST PREG, SECOND TRIME COMPARISON: None. TECHNIQUE: Static and Dynamic grayscale imaging performed of gravid uterus using transabdominal appr oac. Additional selected color Doppler and spectral images recorded. All stored on PACS. LIMITATIONS: None. FINDINGS: FETUSES SEEN:1 EGA: 27 weeks 3 days. Calculated using BPD,FL,HC,AC documented on images. Discrepancy with clinical dates GENESIS: 05/11/2020 EFW: 939 grams PERCENTILE: 85th TANGELA: 13.5 cm. PLACENTA: Anterior location. GRADE: I PRESENTATION: Breech. ANATOMY: HEART RATE: 155 beats per minute. FOUR CHAMBER HEART: Visualized. THREE VESSEL CORD: Yes. CORD INSERTION: Visualized. KIDNEYS AND BLADDER: Visualized. Appear normal. STOMACH: Visualized. Appears normal. SPINE: Normal as visualized. BRAIN AND LATERAL VENTRICLES: Not visualized. OTHER: No other significant finding. MATERNAL ADNEXA: Maternal ovaries not visualized. CERVICAL LENGTH: 3.3 cm. Closed. OTHER: No other significant finding. IMPRESSION: LIVING INTRAUTERINE . ESTIMATED GESTATIONAL AGE 27 WEEKS 3 DAYS. NO VISUALIZED ANOMALIES. Trimester of : Second trimester - 13 weeks 1 day to 27 weeks 6 days. TECHNICAL DOCUMENTATION: JOB ID: [id number] 2010 [employer]- All Rights Reserved Reading location - IP/workstation name: [email or web address]
== END ==
LOC: RAD 12:55
PROVIDERS: ATTEND Nurse Practitioner Family
DX: Z34.02 Encounter for supervision of normal first pregnancy, second trimester (principal); Z3A.27 27 weeks gestation of pregnancy
CPT/HCPCS: 76805

== ENCOUNTER → 2020-02-20 | Outpatient (CLI) | payer MEDICAID ==
--- NOTE | 2020-02-20 16:26 | RADIOLOGY REPORT (SQ) ---
EXAM DESCRIPTION: U/S OB 14+ TRNABD 1GES W/O DOP IMAGES COMPLETED DATE/TIME: 02/20/2020 2:49 pm REASON FOR STUDY: Z34.83 ENCOUNTER FOR SUPRVSN OF NORMAL , THIRD TRIMESTER Z34.83 ENCOUNTE R FOR SUPRVSN OF NORMAL , THIRD TRIM COMPARISON: 02/13/2020 TECHNIQUE: Static and Dynamic grayscale imaging performed of gravid uterus using transabdominal appr oach. Additional selected color Doppler and spectral images recorded. All stored on PACS. LIMITATIONS: None. FINDINGS: FETUSES SEEN:1 EGA: 29 weeks 1 day Calculated using BPD,FL,HC,AC documented on images. Wake GENESIS: 05/06/2020 TANGELA: Total 9 cm, LVP 5.2 x 5.9 cm PLACENTA: Anterior GRADE: II PRESENTATION: Cephalic. ANATOMY: HEART RATE: 133 beats per minute. FOUR CHAMBER HEART: Visualized. THREE VESSEL CORD: Yes. BRAIN AND LATERAL VENTRICLES: Visualized. Appear normal. OTHER: No other significant finding. MATERNAL ADNEXA: Maternal ovaries not visualized. CERVICAL LENGTH: 3.7 cm Closed. OTHER: No other significant finding. IMPRESSION: LIVING INTRAUTERINE . ESTIMATED GESTATIONAL AGE 29 weeks 1 day NO VISUALIZED ANOMALIES. Trimester of : Third trimester - 28 weeks to delivery. TECHNICAL DOCUMENTATION: JOB ID: [id number] 2010 [employer]- All Rights Reserved Reading location - IP/workstation name: [email or web address]
== END ==
LOC: RAD 13:40
PROVIDERS: ATTEND Nurse Practitioner Family
DX: Z34.83 Encounter for supervision of other normal pregnancy, third trimester (principal); Z3A.29 29 weeks gestation of pregnancy
CPT/HCPCS: 76805

== ENCOUNTER 2020-04-28 18:44 | Outpatient (CLI) | payer MEDICAID ==
[2020-04-28 19:24] LABS: APPEARANCE,URINE SLIGHTLY-CLOUDY; BILIRUBIN,URINE NEGATIVE (NEGATIVE); COLOR,URINE YELLOW; GLUCOSE, URINE NEGATIVE (NEGATIVE); KETONES,URINE NEGATIVE (NEGATIVE); LEUKOCYTE ESTERASE,URINE NEGATIVE (NEGATIVE); NITRITE,URINE NEGATIVE (NEGATIVE); PROTEIN,URINE NEGATIVE (NEGATIVE); URINE SPECIFIC GRAVITY 1.013; UROBILINOGEN,URINE NEGATIVE mg/dL (<2.0)
[2020-04-28 19:27] LABS: ADD MANUAL MICROSCOPIC YES
[2020-04-28 19:34] LABS: AMORPHOUS SEDIMENT,UR TRACE
[2020-04-28 19:54] LABS: URINE AMPHETAMINES SCREEN NEGATIVE; URINE BARBITURATES SCREEN NEGATIVE; URINE BENZODIAZEPINES SCREEN NEGATIVE; URINE COCAINE SCREEN NEGATIVE; URINE METHADONE SCREEN NEGATIVE; URINE PHENCYCLIDINE SCREEN NEGATIVE
--- NOTE | 2020-04-28 20:19 | Non Stress Test Report ---
Non Stress Test Datetime Report Generated by CPN: 04/28/2020 20:18 DEMOGRAPHIC EGA NST: 39.0 INDICATION Indication for Study (NST) Other: lc MONITORING Monitor Explained: Monitor Explained; Test Explained; Patient Verbalized Understanding Time on Monitor: 04/28/2020 19:00 Time off Monitor: 04/28/2020 19:50 NST Duration: 50 NST INTERVENTIONS NST Interventions: PO Hydration; Reposition Patient Physician Notified NST: Dr Donis BABY A: [id number] BABY A Movement : Present Contraction Frequency : rare FHR Baseline : 135 Accelerations : 15X15 Decelerations : None Variability : Moderate 6-25bpm NST Review: Meets Criteria for Reactive NST NST Review and Verified By : Kyle Sanches RN NST Results: Reactive NST REPORT Report Trigger: Send Report
[2020-04-28 20:22] LABS: URINE MARIJUANA (THC) SCREEN UNCONFIRMED POSITIVE
== END 2020-04-28 20:24 | disposition home or self-care (01) ==
LOC: LC 18:44
PROVIDERS: ATTEND Obstetrics & Gynecology
DX: Z34.93 Encounter for supervision of normal pregnancy, unspecified, third trimester (principal); Z3A.39 39 weeks gestation of pregnancy
CPT/HCPCS: 59025; 80307; 81001

== ENCOUNTER 2020-04-29 03:40 | Inpatient (IN) | payer MEDICAID ==
[2020-04-29] MEDS ORDERED: CEFAZOLIN SODIUM 2 GM in DEXTROSE 5%-WATER 50 ML IV PRN (05:19)
[2020-04-29] MEDS ORDERED: RINGERS SOLUTION,LACTATED 1,000 ML IV PRN ×2 (05:43→10:47)
[2020-04-29] MEDS ORDERED: RINGERS SOLUTION,LACTATED 1,000 ML IV ONE (05:43)
[2020-04-29] MEDS ORDERED: CITRIC ACID/SODIUM CITRATE ORAL SOLN 15 ML UDCUP ONE (05:47)
[2020-04-29] MEDS ORDERED: CEFAZOLIN 1 GM/D5W RTU 2 GM/100 ML RTUPB IV ONE (05:47)
--- NOTE | 2020-04-29 06:24 | Admission Physical ---
Datetime Report Generated by CPN: 04/29/2020 06:23 CURRENT ADMISSION Chief Complaint: Uterine Contractions; Suspected Ruptured Membranes Indication for Induction: Not Applicable Admit Impression : Term, Intrauterine ; Repeat Section Admit Plan: Admit to Unit; Initiate Section Protocol ALLERGIES Medication Allergies: No Medication Allergies: No Known Allergies (04/28/2020) Latex: No Latex Allergies (Annotations: Data stored by [facility] on behalf of user) OBSTETRICAL HISTORY EDC: 05/05/2020 00:00 : 4 Para: 2 Term: 2 : 0 SAB: 1 IAB: 0 Ectopic: 0 Livin Cesareans: 2 VBACs: 0 Multiple Births: 0 Gestational Diabetes: No Rh Sensitization: No Incompetent Cervix: No FARZANA: No Infertility: No ART Treatment: No Uterine Anomaly: No IUGR: No Hx Previous C/S: Yes Macrosomia: No Hx Loss/Stillborn: No PIH: No Hx : No Placenta Previa/Abruption: No Depression/PP Depression: No PTL/PROM: No Post Hemorrhage: No Current Procedures: Ultrasound Obstetrical History Comments: G1 G2 - 2017 - C/S G3 - 2019 - C/S G4 - Current SEE RECORDS Alcohol: No (Annotations: Data stored by CPN on behalf of user) Marijuana : No Cocaine: No Other Illicit Drugs: No Cigarettes: Never Smoker. 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 Heart Disease: No Hosp/Surgery: Yes Autoimmune Disorder: No Anesthetic Complications: No Kidney Disease: No Abnormal Pap Smear: No Neuro/Epilepsy: No Psychiatric Disorders: No Other Medical Diseases: No Hepatitis/Liver Disease: No Significant Family History: No Varicosities/Phlebitis: No Trauma/Violence : No Thyroid Dysfunction: No INFECTIOUS HISTORY Gonorrhea: No Genital Herpes: No Chlamydia: No Tuberculosis: No Syphilis: No Hepatitis: No HIV/AIDS Exposure: No Rash or Viral Illness: No HPV: No PHYSICAL EXAM General: Normal HEENT: Normal Neurologic: Normal Thyroid: Normal Heart: Normal Lungs: Normal Breast: Deferred Back: Normal Abdomen: Normal Genitourinary Exam: Normal Extremities: Normal DTRs: Normal Pelvic Type: Adequate Vital Signs: Reviewed VAGINAL EXAM Dilatation: 2 Effacement: 40 Station: -3 MEMBRANES Pooling: Positive Membranes: Ruptured FETUS A EGA: 39.1 Monitoring: External US FHR- Baseline: 130 Variability: Moderate 6-25bpm FHR Category: Category I Presentation: Vertex Admit Comment: Admit for a c section PLANS FOR LABOR AND DELIVERY Labor and Delivery: None Pain Management: Spinal Feeding Preference: Breast Benefit of Breast Feed Discussed: Yes Circumcision: No INFORMED CONSENT Signature: with User ID: [email or web address]
[2020-04-29 06:48] LABS: ABSOLUTE BASOPHILS # (AUTO) 0.1 10^3/uL (0.0-0.2); ABSOLUTE EOSINOPHILS # (AUTO) 0.1 10^3/uL (0.0-0.6); ABSOLUTE LYMPHOCYTES (AUTO) 2.6 10^3/uL (0.5-4.7); ABSOLUTE MONOCYTES (AUTO) 1.1 10^3/uL (0.1-1.4); ABSOLUTE NEUT (AUTO) 13.8 10^3/uL (1.7-8.2); BASOPHILS % (AUTO) 0.4 % (0-2); EOSINOPHILS % (AUTO) 0.4 % (0-6); HEMATOCRIT 33.2 % (36.0-47.0); HEMOGLOBIN 11.1 g/dL (12.0-15.5); LYMPHOCYTES % (AUTO) 14.9 % (13-45); MEAN CORPUSCULAR HEMOGLOBIN 27.9 pg (27.0-33.4); MEAN CORPUSCULAR HGB CONC 33.5 g/dL (32.0-36.0); MEAN CORPUSCULAR VOLUME 83 fl (80-97); MONOCYTES % (AUTO) 6.1 % (3-13); PLATELET COUNT 314 10^3/uL (150-450); RED BLOOD COUNT 3.98 10^6/uL (3.72-5.28); RED CELL DISTRIBUTION WIDTH 15.4 % (11.5-14.0); SEGMENTED NEUTROPHILS % (AUTO) 78.2 % (42-78); TOTAL CELLS COUNTED % (AUTO) 100 %; WHITE BLOOD COUNT 17.6 10^3/uL (4.0-10.5)
[2020-04-29] MEDS ORDERED: KETOROLAC TROMETHAMINE INJ/PF 30 MG/1 ML SDV ONE (08:33)
[2020-04-29] MEDS ORDERED: FENTANYL CITRATE INJ/PF 100 MCG/2 ML AMPUL ONE ×2 (08:33→10:41)
[2020-04-29] MEDS ORDERED: EPHEDRINE SULFATE INJ 50 MG/1 ML AMPULE ONE (08:33)
[2020-04-29] MEDS ORDERED: OXYTOCIN 10 UNIT/ML VIAL ONE ×2 (08:33→08:34)
[2020-04-29] MEDS ORDERED: DEXAMETHASONE SOD PHOSPHATE INJ 4 MG/1 ML VIAL ONE (08:34)
[2020-04-29] MEDS ORDERED: MIDAZOLAM 2 MG/2 ML INJ ONE (08:34)
[2020-04-29] MEDS ORDERED: ONDANSETRON HCL INJ/PF 4 MG/2 ML SDV ONE (08:34)
[2020-04-29] MEDS ORDERED: ACETAMINOPHEN 1,000 MG/100 ML RTUPB IV ONE (08:34)
[2020-04-29] MEDS ORDERED: PHENYLEPHRINE HCL INJ/PF 10 MG/1 ML SDV ONE (08:34)
[2020-04-29] MEDS ORDERED: DIPHENHYDRAMINE HCL 50 MG/ML VIAL IV PRN (09:58)
[2020-04-29] MEDS ORDERED: PROMETHAZINE HCL INJ 25 MG/1 ML VIAL IV PRN ×3 (09:58→10:47)
[2020-04-29] MEDS ORDERED: FENTANYL CITRATE INJ/PF 100 MCG/2 ML AMPUL IV PRN ×3 (09:58)
[2020-04-29] MEDS ORDERED: ONDANSETRON HCL INJ/PF 4 MG/2 ML SDV IV PRN (09:58)
[2020-04-29] MEDS ORDERED: MORPHINE SULFATE 10 MG/ML INJ IV PRN (09:58)
[2020-04-29] MEDS ORDERED: MEPERIDINE HCL/PF INJ 25 MG/1 ML DISP.SYRIN IV PRN (09:58)
[2020-04-29] MEDS ORDERED: OXYCODONE-ACETAMINOPHEN 5-325 MG TABLET PO PRN ×3 (09:58→10:47)
[2020-04-29] MEDS ORDERED: MORPHINE SULFATE 10 MG/ML INJ ONE (10:12)
[2020-04-29] MEDS ORDERED: PROPOFOL INJ 200 MG/20 ML VIAL IV ONE (10:12)
[2020-04-29] MEDS ORDERED: OXYTOCIN/0.9 % SODIUM CHLORIDE 30 UNIT/500 ML RTUINJ IV PRN (10:47)
[2020-04-29] MEDS ORDERED: HYDROMORPHONE HCL INJ/PF 2 MG/ML AMPULE IV PRN (10:47)
[2020-04-29] MEDS ORDERED: DIPH/PERTUSS(ACELL)/TETANUS VAC/PF 0.5 ML SYR (>=10YO) IM PRN (10:47)
[2020-04-29] MEDS ORDERED: ACETAMINOPHEN 325 MG TABLET PO PRN (10:47)
[2020-04-29] MEDS ORDERED: SIMETHICONE 80 MG TAB.CHEW PO PRN (10:47)
[2020-04-29] MEDS ORDERED: MEASLES,MUMPS&RUBELLA VACC/PF 0.5 ML VIAL SUBCUT PRN (10:47)
[2020-04-29] MEDS ORDERED: HYDROMORPHONE HCL INJ/PF 2 MG/ML AMPULE IV ONE (10:59)
--- NOTE | 2020-04-29 11:13 | Operative Report ---
Operative Report DATE OF SURGERY: 04/29/20 PREOPERATIVE DIAGNOSIS: Prior x2, Intrauterine at 39.1 wks E GA and PROM POSTOPERATIVE DIAGNOSIS: As above plus scar tissue between anterior abdominal wall and omentum OPERATION: Repeat section and lysis of adhesions SURGEON: PABLO JOHNS ANESTHESIA: Spinal TISSUE REMOVED OR ALTERED: Placenta COMPLICATIONS: None ESTIMATED BLOOD LOSS: 800cc INTRAOPERATIVE FINDINGS: Normal appearing uterus, bilateral fallopian tubes and ovaries. Thin lower uterine segment in area of previous scar. Scar tissue extensive in rectus fascia and between anterior abdominal wall and omentum. VIable male infant in vertex presentation PROCEDURE: IV fluids: per anesthesia record Urinary output: 250 cc clear yellow urine Findings: Normal-appearing uterus bilateral fallopian tubes and ovaries. Placenta normal grossly. Viable male infant. Scar tissure extensive in rectus fascia and between anterior abdominal wall and omentum. Position: To recovery room in stable condition Description of procedure: The patient was taken to the operating room and spinal anesthesia was administered and found to be adequate. She was then placed on the OR table in the supine position with a slight leftward tilt. Patient was prepped and draped in usual sterile fashion. Ancef 2 gms was given IV prior to the procedure for infection prophylaxis. Timeout was taken. A Pfannenstiel skin incision was then made approximately 3 cm above the pubic symphysis and carried down to level the rectus fascia. The rectus fascia was then nicked in the midline with a scalpel and the fascial incision was extended laterally with use of curved Rodrigues scissors. The rectus fascia was then grasped with 2 Kocker clamps elevated and the underlying rectus muscle was dissected off both bluntly and sharply. Scar tissue noted as above. Any bleeding controlled with cautery. The rectus muscles were then split in the midline and the peritoneum was entered. The peritoneal incision was then extended by manually stretching the peritoneum. The bladder blade was positioned. The bladder was noted to be out of harm's way. A scalpel was then used in the lower uterine for the hysterotomy, slowly until amniotomy was obtained a large amount of fluid was noted. The uterine incision was then manually stretched. The infant was noted to be in vertex postion. The head was elevated and brought to the hysterotomy incision. The head then delivered with minmal difficulty. The shoulders were difficult to deliver and required use of bandage scissors to extend the incion approximatly 1 inch. The rest of the body then followed the shoulders immediately. The cord was cut clamped and the was handed off to the nurse awaiting. Infant was crying prior to hand off. The placenta was manually delivered. Using a lap gauze the uterus was cleared of all clots and debris. An dary retractor was previously placed. The bladder blade was repositioned. The uterine incision was then closed with 0 Chromic suture in a running locked fashion. A second layer of the same suture was used in a running locked imbricated fashion. The uterine incision was inspected and noted to be hemostatic. Retractor was removed. Warm saline irrigation was used to clear all clots and debris from the abdomen. The uterine incision was inspected once more and noted to remain hemostatic. The bladder blade was removed and the peritoneum was closed with 2-0 chromic in a running fashion. The rectus muscles were then reapproximated and the rectus fascia was closed with a #1 PDS in a running fashion. The subcutaneous tissue was then inspected and any bleeding was controlled with Bovie electrocautery. The subcutaneous tissue was then closed with 2-0 Plain Gut suture in a running fashion. The skin was then closed with 4-0 Monocryl in a running subcuticular fashion. The skin incision was then clean dried and Dermabond was applied over the skin incision. Pressure dressing applied due to a small amount of oozing in subcutaneous tissue. Bovie was also used to obtain hemostasis All instrument sponge and needle counts were correct x3 for the procedure the patient tolerated the procedure well. She will proceed to recovery room in stable condition
[2020-04-29] MEDS: KETOROLAC TROMETHAMINE INJ/PF 30 MG/1 ML SDV IV SCH ×2 (13:31→17:49)
[2020-04-29] MEDS: OXYCODONE-ACETAMINOPHEN 5-325 MG TABLET PO PRN ×2 (14:18→23:31)
[2020-04-29] MEDS: DOCUSATE SODIUM 100 MG CAPSULE PO SCH (17:49)
[2020-04-29] MEDS ORDERED: IBUPROFEN 800 MG TABLET PO SCH (22:00)
[2020-04-30] MEDS: IBUPROFEN 800 MG TABLET PO SCH ×2 (02:08→09:43)
[2020-04-30] MEDS: OXYCODONE-ACETAMINOPHEN 5-325 MG TABLET PO PRN ×2 (05:02→12:53)
[2020-04-30 08:10] LABS: HEMATOCRIT 27.2 % (36.0-47.0); HEMOGLOBIN 9.1 g/dL (12.0-15.5); MEAN CORPUSCULAR HEMOGLOBIN 27.9 pg (27.0-33.4); MEAN CORPUSCULAR HGB CONC 33.5 g/dL (32.0-36.0); MEAN CORPUSCULAR VOLUME 83 fl (80-97); PLATELET COUNT 293 10^3/uL (150-450); RED BLOOD COUNT 3.27 10^6/uL (3.72-5.28); RED CELL DISTRIBUTION WIDTH 15.7 % (11.5-14.0); WHITE BLOOD COUNT 19.3 10^3/uL (4.0-10.5)
[2020-04-30] MEDS: DOCUSATE SODIUM 100 MG CAPSULE PO SCH (09:43)
[2020-04-30] MEDS ORDERED: PRENATAL VITAMIN W DHA CAPSULE PO SCH (10:00)
--- NOTE | 2020-04-30 13:33 | PDOC DISCHARGE SUMMARY ---
Impression - Admit/DC Date/PCP Admission Date/Primary Care Provider: 04/29/20 05:10 Discharge Date: 04/30/20 - POD #1, greater than 24 hours since , Pt strongly desires to go home today. Wants early discharge. A+, Rubella Immune, breast and bottlefeeding. - Discharge Diagnosis (1) Delivery by emergency caesarean section Is this a current diagnosis for this admission?: Yes (2) History of anxiety Is this a current diagnosis for this admission?: Yes (3) Malpresentation of fetus, antepartum Is this a current diagnosis for this admission?: Yes (4) Post-term , 40-42 weeks of gestation Is this a current diagnosis for this admission?: Yes (5) Is this a current diagnosis for this admission?: Yes (6) THC use in Is this a current diagnosis for this admission?: Yes - Additional Information Resuscitation Status: Full Code Discharge Diet: As Tolerated, Regular Discharge Activity: Activity As Tolerated, No Driving, No Lifting Over 10 Pounds, Pelvic Rest Prescriptions: Ferrous Sulfate 325 mg PO DAILY #30 tablet. Ibuprofen [Motrin 800 mg Tablet] 800 mg PO Q8A #60 tablet Oxycodone HCl/Acetaminophen [Percocet 5-325 mg Tablet] 1 tab PO Q4HP PRN #30 tablet PRN Reason: Pain Scale Of 4 Home Medications: Vit/Iron Fum/Folic AC [ Tablet] 1 each PO DAILY 12/19/17 Ferrous Sulfate 325 mg PO DAILY #30 tablet. 04/30/20 Ibuprofen [Motrin 800 mg Tablet] 800 mg PO Q8A #60 tablet 04/30/20 Oxycodone HCl/Acetaminophen [Percocet 5-325 mg Tablet] 1 tab PO Q4HP PRN #30 tablet 04/30/20 HPI Reason(s) for Admission: Onset of Labor, Ceasarean Section-Repeat Procedures: Ultrasound Intrapartum Procedure(s): : Low Cervical, Transverse Hospital Course Hospital Course: routine Results Laboratory Results: WBC 19.3 10^3/uL (4.0-10.5) H 04/30/20 07:26 RBC 3.27 10^6/uL (3.72-5.28) L 04/30/20 07:26 Hgb 9.1 g/dL (12.0-15.5) L 04/30/20 07:26 Hct 27.2 % (36.0-47.0) L 04/30/20 07:26 MCV 83 fl (80-97) 04/30/20 07:26 MCH 27.9 pg (27.0-33.4) 04/30/20 07:26 MCHC 33.5 g/dL (32.0-36.0) 04/30/20 07:26 RDW 15.7 % (11.5-14.0) H 04/30/20 07:26 Plt Count 293 10^3/uL (150-450) 04/30/20 07:26 Lymph % (Auto) 14.9 % (13-45) 04/29/20 06:30 Crisp % (Auto) 6.1 % (3-13) 04/29/20 06:30 Eos % (Auto) 0.4 % (0-6) 04/29/20 06:30 Baso % (Auto) 0.4 % (0-2) 04/29/20 06:30 Absolute Neuts (auto) 13.8 10^3/uL (1.7-8.2) H 04/29/20 06:30 Absolute Lymphs (auto) 2.6 10^3/uL (0.5-4.7) 04/29/20 06:30 Absolute Monos (auto) 1.1 10^3/uL (0.1-1.4) 04/29/20 06:30 Absolute Eos (auto) 0.1 10^3/uL (0.0-0.6) 04/29/20 06:30 Absolute Basos (auto) 0.1 10^3/uL (0.0-0.2) 04/29/20 06:30 Seg Neutrophils % 78.2 % (42-78) H 04/29/20 06:30 Membranes Rupture POSITIVE (NEGATIVE) H 04/29/20 04:42 RPR NONREACTIVE (NONREACTIVE) 04/29/20 06:30 SARS-CoV-2 (PCR) NEGATIVE (NEGATIVE) 04/29/20 05:58 Blood Type A POSITIVE 04/29/20 06:30 Antibody Screen NEGATIVE 04/29/20 06:30 Plan Plan of Treatment: d/c to home, f/up with [facility] for PP incsion check in one week Time Spent: Less than 30 Minutes
[2020-04-30 15:22] VITALS: BP 124/73
--- NOTE | 2020-05-01 11:46 | Delivery Summary ---
Del Sum A-C Datetime Report Generated by CPN: 05/01/2020 11:46 DELIVERY PERSONNEL DELIVERY PERSONNEL: [id number] Delivery Doctor:: Diamante Núñez MD CASE CONSULTANT:: Lo Kilpatrick CASE CONSULTANT Labor and Delivery Nurse:: Wendy Armando RN Horticultural Specialty Grower:: Wendy Armando RN Nursery Nurse:: Lorie Figueroa RN Production Drilling Machine Operator/GRANTS MANAGER: Mayuri Castro CST Production Drilling Machine Operator/GRANTS MANAGER: Brigitte Sweeney, SUPERVISOR EXTRUDING DEPARTMENT MATERNAL INFORMATION Delivery Anesthesia: Spinal Medications After Delivery: Pitocin 30 Units in 500ml NS/D5W Maternal Complications: None LABOR SUMMARY EDC: 05/05/2020 00:00 No. Babies in Womb: 1 LABOR INFORMATION Oxytocin: N/A Group B Beta Strep: Unknown MEMBRANES Membranes Rupture Method: Spontaneous Rupture of Membranes: 04/29/2020 04:30 Length of Rupture (hr): 5.33 Amniotic Fluid Color: Clear Amniotic Fluid Amount: Scant STAGES OF LABOR Stage 3 hr: 0 Stage 3 min: 2 CSECTION DELIVERY Primary Indication: Repeat Elective Secondary Indication: Repeat Elective CSection Urgency: Non-Scheduled CSection Incidence: Repeat Labor: N/A Elective: Elective CSection Incision: Lower Uterine Transverse BABY A INFORMATION Delivery Date/Time: 04/29/2020 09:50 Method of Delivery: Nurse Controlled Delivery: No Born in Route : No : N/A Forceps: N/A Vacuum Extraction: N/A Shoulder Dystocia : No PRESENTATION/POSITION BABY A Presentation: Cephalic Cephalic Presentation: Vertex Vertex Position: Right Occipital Anterior Breech Presentation: N/A PLACENTA INFORMATION BABY A Placenta Delivery Time : 04/29/2020 09:52 Placenta Method of Delivery: Manual Removal Placenta Status: Delivered SCORES BABY A Heart Rate 1 min: >100 bpm Resp Effort 1 min: Good Cry Reflex Irritability 1 min: Cough or Sneeze or Pulls Away Muscle Tone 1 min: Active Motion Color 1 min: Blue/Pale Resuscitation Effort 1 min: Tactile Stimulation SCORE 1 MIN: 8 Heart Rate 5 min: >100 bpm Resp Effort 5 min: Good Cry Reflex Irritability 5 min: Cough or Sneeze or Pulls Away Muscle Tone 5 min: Active Motion Color 5 min: Body [place], Extremities Blue SCORE 5 MIN: 9 INFANT INFORMATION BABY A Gestational Age at Delivery: 39.0 Gestational Status: Full Term- 39- 40.6 Weeks Infant Outcome : Liveborn Condition : Stable Infant Sex: Male IDENTIFICATION BABY A Infant Verification Date/Time: 04/29/2020 09:52 ID Band Number: [id number] Mother's Name Verified: Yes Infant RN Verifying : R Tr RN Additional Verifying Personnel: Candelario Mauricio RN WEIGHT/LENGTH BABY A Infant Birthweight (gm): 3275 Infant Weight (lb): 7 Infant Weight (oz): 4 Length (in): 19.50 Length (cm): 49.53 CORD INFORMATION BABY A No. Cord Vessels: 3 Nuchal Cord : N/A Cord Blood Taken: Yes-For Storage (Mom's Blood type +) ASSESSMENT BABY A Complications: None Physical Findings at Delivery: Within Normal Limits; Bruising Physical Findings- Other: facial bruising Infant Respirations: Appears Normal Skin to Skin: No Infant Care By: Lorie Figueroa Transferred To: Nursery
== END 2020-04-30 15:35 | disposition home or self-care (01) | DRG 787 ==
LOC: LC 03:40 → LR 05:10 → 2S 12:45
PROVIDERS: ADMIT Obstetrics & Gynecology; ATTEND Obstetrics & Gynecology
PROC: 10D00Z1 Extraction of Products of Conception, Low, Open Approach (ICD-10-PCS; principal; 2020-04-29)
DX: O34.211 Maternal care for low transverse scar from previous cesarean delivery (principal); O99.324 Drug use complicating childbirth; O32.8XX0 Maternal care for other malpresentation of fetus, not applicable or unspecified; O99.344 Other mental disorders complicating childbirth; F41.9 Anxiety disorder, unspecified; F12.90 Cannabis use, unspecified, uncomplicated; O99.89 Other specified diseases and conditions complicating pregnancy, childbirth and the puerperium; N73.6 Female pelvic peritoneal adhesions (postinfective); Z3A.39 39 weeks gestation of pregnancy; Z37.0 Single live birth
CPT/HCPCS: 1961; 36415; 80349; 84112; 85025; 85027; 86592; 86850; 86900; 86901; 87635; 94760; 94799; 99140; C9803; G0480; J0131; J0690; J1100; J1170; J1885; J2250; J2270; J2370; J2405; J2590; J2704; J3010; J3490; J7120

== ENCOUNTER 2020-09-29 22:13 | Emergency (ER) | payer MEDICAID ==
[2020-09-29] MEDS ORDERED: ACETAMINOPHEN 325 MG TABLET PO ONE (22:27)
--- NOTE | 2020-09-29 23:01 | ER Document Report ---
ED Medical Screen (RME) - General Chief Complaint: Sore Throat Stated Complaint: SORE THROAT Time Seen by Provider: 09/29/20 22:50 Mode of Arrival: Ambulatory Information source: Patient Notes: HPI; 25-year-old female presents to the emergency room complaining of a sore throat, shortness of breath, and urinary frequency for the past 3 days. Subjective fever. No nausea, no vomiting, able to tolerate p.o. fluids. Denies any recent travel. Denies any COVID-19 exposure. No other ill contacts. PE: Alert and oriented x3. Positive pharyngeal erythema with exudate. Positive bilateral anterior cervical lymphadenopathy. Lungs: Clear to auscultation without rales, rhonchi, wheezes. Heart: Tachycardic without murmurs, rubs, gallops. I have greeted and performed a rapid initial assessment of this patient. A comprehensive ED assessment and evaluation of the patient, analysis of test results and completion of the medical decision making process will be conducted by additional ED providers. I have specifically instructed the patient or family members with the patient to immediately return to any nursing staff should anything change in the patient's condition or with their chief complaint. TRAVEL OUTSIDE OF THE [place] IN LAST 30 DAYS: No - Related Data Allergies/Adverse Reactions: No Known Allergies Allergy (Verified 04/28/20 18:54) Past Medical History Renal/ Medical History: Denies: Hx Peritoneal Dialysis Psychiatric Medical History: Reports: Hx Depression Past Surgical History: Reports: Hx Section, Hx Oral Surgery - Immunizations Immunizations up to date: Yes Hx Diphtheria, Pertussis, Tetanus Vaccination: Yes Physical Exam - Vital signs Vitals: Temp Pulse Resp BP Pulse Ox 103.0 F H 128 H 16 138/91 H 100 09/29/20 22:22 09/29/20 22:22 09/29/20 22:22 09/29/20 22:22 09/29/20 22:22 Course - Vital Signs Vital signs: Temp Pulse Resp BP Pulse Ox 103.0 F H 128 H 16 138/91 H 100 09/29/20 22:22 09/29/20 22:22 09/29/20 22:22 09/29/20 22:22 09/29/20 22:22
[2020-09-30] MEDS ORDERED: CLINDAMYCIN 900 MG/D5W RTU 900 MG/50 ML RTUPB IV ONE (00:20)
[2020-09-30] MEDS ORDERED: DEXAMETHASONE SOD PHOS INJ 10 MG/1 ML VIAL IV ONE ×3 (00:21→01:50)
--- NOTE | 2020-09-30 00:27 | ER Document Report ---
ED ENT - General Chief Complaint: Sore Throat Stated Complaint: SORE THROAT Time Seen by Provider: 09/29/20 22:50 Primary Care Provider: JIMMY BAER MD [ACTIVE STAFF] - Follow up as needed Mode of Arrival: Ambulatory Information source: Patient Notes: ED Medical Screen ([facility] notes)) - General Chief Complaint: Sore Throat Stated Complaint: SORE THROAT Time Seen by Provider: 09/29/20 22:50 Mode of Arrival: Ambulatory Information source: Patient Notes: HPI; 25-year-old female presents to the emergency room complaining of a sore throat, shortness of breath, and urinary frequency for the past 3 days. Subjective fever. No nausea, no vomiting, able to tolerate p.o. fluids. Denies any recent travel. Denies any COVID-19 exposure. No other ill contacts. PE: Alert and oriented x3. Positive pharyngeal erythema with exudate. Positive bilateral anterior cervical lymphadenopathy. Lungs: Clear to auscultation without rales, rhonchi, wheezes. Heart: Tachycardic without murmurs, rubs, gallops. 09/30/20 00:10 (created 09/30/20 00:10) - ED Nursing Note by NASREEN ACEVEDO [facility] Num: [id number] : 1995 Patient Age: 25 Assumed care of 25 yo female c/o sore throat x past 3 days with difficulty swallowing. Pt a/o x 4, ambulatory w/op assist, bedside, will ctm. MY NOTES 25-year-old female arrives with 3-day history of sore throat left greater than right and fever/feeling hot and sweaty at home with tiredness and reporting she has a 3-year-old and a 1-year-old and a 3-month-old at home. She has been taking care of these children but advised over the last few days she has been neglecting her duties because she has felt so sick. She has swelling to the left lateral and anterior side of her neck and it hurts to swallow. She denies any sick children or sick adults she is coming to contact with. She does advise pain on swallowing and denies any prior history of similar problems. She is scheduled for some major dental work because of dental erosion of all of her teeth. TRAVEL OUTSIDE OF THE [place] IN LAST 30 DAYS: No - Related Data Allergies/Adverse Reactions: No Known Allergies Allergy (Verified 04/28/20 18:54) Past Medical History - General Information source: Patient - Social History Smoking Status: Never Smoker Cigarette use (# per day): No Chew tobacco use (# tins/day): No Smoking Education Provided: No Frequency of alcohol use: None Drug Abuse: None Lives with: Family Family History: Reviewed & Not Pertinent Patient has suicidal ideation: No Patient has homicidal ideation: No Renal/ Medical History: Denies: Hx Peritoneal Dialysis Psychiatric Medical History: Reports: Hx Depression Past Surgical History: Reports: Hx Section, Hx Oral Surgery - Immunizations Immunizations up to date: Yes Hx Diphtheria, Pertussis, Tetanus Vaccination: Yes Review of Systems - Review of Systems Constitutional: See HPI, Fever, Weakness, Weight loss, Recent illness EENT: See HPI, Throat pain Cardiovascular: No symptoms reported Respiratory: No symptoms reported Gastrointestinal: No symptoms reported Genitourinary: No symptoms reported Female Genitourinary: No symptoms reported Musculoskeletal: No symptoms reported Skin: No symptoms reported Hematologic/Lymphatic: No symptoms reported Neurological/Psychological: No symptoms reported Physical Exam - Vital signs Vitals: Temp Pulse Resp BP Pulse Ox 103.0 F H 128 H 16 138/91 H 100 09/29/20 22:22 09/29/20 22:22 09/29/20 22:22 09/29/20 22:22 09/29/20 22:22 Interpretation: Hypertensive, Tachycardic, Febrile - General General appearance: Appears well, Alert - HEENT Head: Normocephalic, Atraumatic Eyes: Normal Pupils: PERRL Sinus: Normal Nasal: Normal Mouth/Lips: Normal Mucous membranes: Normal Teeth diagram: 1 - dental erosion of all teeth Pharynx: Erythema, Peritonsillar abscess - Left-sided Neck: Anterior cervical chain - Respiratory Respiratory status: No respiratory distress Chest status: Nontender Breath sounds: Normal Chest palpation: Normal - Cardiovascular Rhythm: Tachycardia Heart sounds: Normal auscultation Murmur: No - Abdominal Inspection: Normal Distension: No distension Bowel sounds: Normal Tenderness: Nontender Organomegaly: No organomegaly - Rectal Hemorrhoids: Other - deferred - Genitourinary Bimanuel exam: Other - deferred - Back Back: Normal, Nontender - Extremities General upper extremity: Normal inspection, Nontender, Normal color, Normal ROM, Normal temperature General lower extremity: Normal inspection, Nontender, Normal color, Normal ROM, Normal temperature, Normal weight bearing. No: Julio's sign - Neurological Neuro grossly intact: Yes Cognition: Normal Orientation: AAOx4 Banco Coma Scale Eye Opening: Spontaneous Banco Coma Scale Verbal: Oriented Larry Coma Scale Motor: Obeys Commands Banco Coma Scale Total: 15 Speech: Normal Motor strength normal: LUE, RUE, LLE, RLE Sensory: Normal - Psychological Associated symptoms: Normal affect, Normal mood - Skin Skin Temperature: Warm Skin Moisture: Dry Skin Color: Normal Course - Vital Signs Vital signs: Temp Pulse Resp BP Pulse Ox 103.0 F H 128 H 16 138/91 H 100 09/29/20 22:22 09/29/20 22:22 09/29/20 22:22 09/29/20 22:22 09/29/20 22:22 - Laboratory Result Diagrams: 09/30/20 00:30 09/30/20 00:30 Laboratory results interpreted by me: 09/30/20 09/30/20 09/30/20 00:30 00:30 00:30 WBC 13.9 H RDW 15.1 H Lymph % (Auto) 12.5 L Absolute Neuts (auto) 11.0 H Seg Neutrophils % 78.9 H Potassium 3.5 L Carbon Dioxide 18 L Glucose 113 H AST 80 H ALT 55 H Urine Protein 30 H Urine Blood MODERATE H - Diagnostic Test Radiology reviewed: Reports reviewed Critical Care Note - Critical Care Note Comments: I discussed this case with Dr. Jimmy BURGER and he advises following up in his office on at 0900 with steroids and antibiotic. Admission potential was there but patient did not want to stay because she has 3 children at home. We warned her of the pros and cons of leaving hospital. Discharge - Discharge Clinical Impression: Peritonsillar abscess left side, Tonsillitis with exudate Fever Qualifiers: Fever type: unspecified Qualified Code(s): R50.9 - Fever, unspecified Condition: Stable Disposition: AGAINST MEDICAL ADVICE Instructions: Tonsillitis ([facility]) Additional Instructions: Follow-up with Dr. Jimmy Baer ENT doctor for [facility]. A referral number is on this page. Please call office tomorrow and go to his office on at 0900 9 AM and continue to take medicines as directed. Off work note has been written for you should you need this. Avoid any severe cold like ice or very hot liquids. Try to drink room temperature liquids and stick to soft foods like potatoes rice applesauce until seen by ENT. Try to keep your hands cleaned and mouth away from children because of their ages. Prescriptions: Clindamycin HCl [Cleocin 150 mg Capsule] 150 mg PO BID #14 Dexamethasone [Decadron 4 Mg Tablet] 4 mg PO DAILY #5 tablet Referrals: JIMMY BAER MD [ACTIVE STAFF] - Follow up as needed
[2020-09-30] MEDS ORDERED: LEVOFLOXACIN 750 MG/D5W RTU 750 MG/150 ML RTUPB IV SCH (00:30)
[2020-09-30 01:08] LABS: ABSOLUTE LYMPHOCYTES (AUTO) 1.7 10^3/uL (0.5-4.7); ABSOLUTE MONOCYTES (AUTO) 1.1 10^3/uL (0.1-1.4); BASOPHILS % (AUTO) 0.3 % (0-2); EOSINOPHILS % (AUTO) 0.1 % (0-6); HEMATOCRIT 38.4 % (36.0-47.0); HEMOGLOBIN 13.3 g/dL (12.0-15.5); LYMPHOCYTES % (AUTO) 12.5 % (13-45); MEAN CORPUSCULAR HEMOGLOBIN 28.7 pg (27.0-33.4); MEAN CORPUSCULAR HGB CONC 34.7 g/dL (32.0-36.0); MEAN CORPUSCULAR VOLUME 83 fl (80-97); MONOCYTES % (AUTO) 8.2 % (3-13); PLATELET COUNT 269 10^3/uL (150-450); RED BLOOD COUNT 4.64 10^6/uL (3.72-5.28); RED CELL DISTRIBUTION WIDTH 15.1 % (11.5-14.0); SEGMENTED NEUTROPHILS % (AUTO) 78.9 % (42-78); TOTAL CELLS COUNTED % (AUTO) 100 %; WHITE BLOOD COUNT 13.9 10^3/uL (4.0-10.5)
[2020-09-30 01:29] LABS: ALBUMIN 4.5 g/dL (3.5-5.0); ALKALINE PHOSPHATASE 125 U/L (38-126); ANION GAP 14 (5-19); ASPARTATE AMINO TRANSFERASE 80 U/L (14-36); BILIRUBIN,DIRECT 0.2 mg/dL (0.0-0.4); BILIRUBIN,TOTAL 0.4 mg/dL (0.2-1.3); BLOOD UREA NITROGEN 10 mg/dL (7-20); CALCIUM 9.4 mg/dL (8.4-10.2); CARBON DIOXIDE 18 mmol/L (22-30); CHLORIDE 106 mmol/L (98-107); GLUCOSE 113 mg/dL (75-110); POTASSIUM 3.5 mmol/L (3.6-5.0); TOTAL PROTEIN 7.5 g/dL (6.3-8.2)
[2020-09-30 02:04] LABS: APPEARANCE,URINE SLIGHTLY-CLOUDY; BILIRUBIN,URINE NEGATIVE (NEGATIVE); COLOR,URINE YELLOW; GLUCOSE, URINE NEGATIVE (NEGATIVE); KETONES,URINE NEGATIVE (NEGATIVE); LEUKOCYTE ESTERASE,URINE NEGATIVE (NEGATIVE); NITRITE,URINE NEGATIVE (NEGATIVE); PROTEIN,URINE 30 mg/dL (NEGATIVE); URINE SPECIFIC GRAVITY 1.013; UROBILINOGEN,URINE NEGATIVE mg/dL (<2.0)
[2020-09-30] MEDS ORDERED: HYDROCODONE/ACETAMINOPHEN 5-325 MG (6 TAB/ER DISP) PO PRN (02:16)
[2020-09-30] MEDS ORDERED: DEXAMETHASONE SOD PHOSPHATE INJ 4 MG/1 ML VIAL IV ONE ×2 (02:18→02:19)
--- NOTE | 2020-09-30 03:05 | RADIOLOGY REPORT (SQ) ---
EXAM DESCRIPTION: CT NECK WITH IV CONTRAST COMPLETED DATE/TME: 09/30/2020 02:30 CLINICAL HISTORY: 25 years Female, sore throat x3 days with difficulty swallowing COMPARISON: None Available. TECHNIQUE: CT of the neck soft tissues obtained following the uncomplicated intravenous administration of 75 mL Omnipaque 350 FINDINGS: Soft tissue: Visualized intracranial contents are unremarkable. No abnormalities of visualized clavicles or intraorbital contents. The tongue base is symmetric. Mild enlargement of the left faucial tonsils without well-circumscribed fluid collection. Scattered enlarged multilevel cervical lymphadenopathy is likely reactive. No abnormalities of the parapharyngeal space or pharyngeal mucosal space. No abnormalities of the parotid or submandibular glands. Thyroid gland is unremarkable. No abnormalities of the epiglottis. Bones: No acute facial bone fracture. No acute abnormalities of the visualized cervical spine. Paranasal sinuses are well aerated. IMPRESSION: 1. Enlargement of the left faucial tonsils without well-circumscribed fluid collection. Findings could be seen with tonsillitis. 2. Mild bilateral cervical lymphadenopathy. This is likely reactive. This exam was performed according to our departmental dose-optimization program, which includes automated exposure control, adjustment of the mA and/or kV according to patient size and/or use of iterative reconstruction technique.
--- NOTE | 2020-09-30 03:06 | RADIOLOGY REPORT (SQ) ---
EXAM DESCRIPTION: XR CHEST 2 VIEWS COMPLETED DATE/TME: 09/30/2020 02:35 CLINICAL HISTORY: shortness of breath COMPARISON: 04/12/2018 FINDINGS: Frontal and lateral radiographic views of the chest. Cardiomediastinal silhouette: Normal size and contour. Lungs: No consolidation, pneumothorax, or pleural effusion. Bones: No acute osseous abnormality. Upper abdomen: No abnormality identified. IMPRESSION: 1. No acute pulmonary process identified.
[2020-09-30 03:43] VITALS: BP 125/83
--- OUTSIDE RECORDS SUMMARY | 2020-10-01 17:47 | XMS REPORT ---
:1995 [facility] [address] [place] [address] Care Team Providers Name Role Phone PCP, INFORMATION UNAVAILABLE Primary Care Physician UnavailDiane Blanchard Attending Clinician Unavailable Diane GRACIA Admitting Clinician Unavailable Allergies, Adverse Reactions, Alerts This patient has no known allergies or adverse reactions. Medications Ordered Filled Start Stop Current Ordering Indication Dosage Frequency Signature Comments Components Medication Medication Date Date Medication? Clinician (SIG) Name Name Acetaminoph Yes Ara M 650 Every 4 en (Tylenol 01-10 Will Maharaj Hours as Tab*) 325 00:00: needed for Mg Tablet 00 Fever Or Pain Docusate Yes Ara M 100 Twice Per Sodium 100 - Will Maharaj Day Mg Capsule 00:00: 00 Ibuprofen Yes Ara M 800 Every 8 (Motrin -21 Will Maharaj Hours as Tab*) 800 00:00: needed for Mg Tab 00 Pain Lanolin Yes Ara M 7 As (Lansinoh*) 01-10 Will Maharaj Directed 7 Gm Oint 00:00: as needed 00 for Nipple Care Norethindro Yes Ara M 1 Once Per ne (Nicole*) 01-10 Will Maharaj Day 0.35 Mg 00:00: Tablet 00 Oxycodone Yes Ara M 5 Every 4 Hcl - Will Maharaj Hours as (Roxicodone 00:00: needed for *) 5 Mg 00 Pain Tablet Yes 1 Once Per Multivit-Mi Day n W/Fe-Fa* ( Vitamin*) 1 Each Tablet Problems Condition Condition Condition Status Onset Resolution Last Treatin g Comments Name Details Category Date Date Treatment Clinician Date Short Problem Active interval 2-20 between 09:43: pregnancies 00 complicating in third trimester, antepartum History of Problem Active 2-20 delivery 09:43: 00 Procedures Procedure Date / Time Performed Performing Clinician Devic e 2019-01-09 00:00:00 MASOOD GRACIA Results Test Description Test Time Test Comments Text Results Atomic Results Result Comments Hemoglobin 2019-01-10 05:15:00 Test Item Value Reference Range Comments Blood hemoglobin measurement (mass/volume) (test code = 718-7) 8 .9 11.4-14.4 Hpvgjxqxxq4080-62-83 05:15:00 Test Item Value Reference Range Comments Automated blood hematocrit (volume fraction) (test 28.1 33.3-41.4 code = 4544-3) Mean Corpuscular Ytcmvv1421-44-19 05:15:00 Test Item Value Reference Range Comments Automated erythrocyte mean corpuscular volume (test 84.6 79.3-94.8 code = 787-2) Mean Corpuscular Ohyfnegrti8609-98-19 05:15:00 Test Item Value Reference Range Comments Automated erythrocyte mean corpuscular hemoglobin 26.9 26.8-33.2 (mass per erythrocyte) (test code = 785-6) Mean Corpuscular Hemoglobin Whnpnew5739-81-03 05:15:00 Test Item Value Reference Range Comments Automated erythrocyte mean corpuscular hemoglobin 31.8 33.5-35.5 concentration measurement (mass/volume) (test code = 786-4) Red Cell Distribution Elrzc9115-66-89 05:15:00 Test Item Value Reference Range Comments Automated erythrocyte distribution width ratio (test 15.3 12.0-15.1 code = 788-0) Platelet Bbfei0394-37-48 05:15:00 Test Item Value Reference Range Comments Automated blood platelet count (count/volume) (test 314 165353 code = 777-3) Mean Platelet Uufcua9895-27-47 05:15:00 Test Item Value Reference Range Comments Automated blood platelet mean volume measurement (test 8.3 7.5-10.6 code = 22956-9) Neutrophils (%) (Auto)2019-01-10 05:15:00 Test Item Value Reference Range Comments Automated blood neutrophil count as percentage of 70.5 43.2-71.5 total leukocytes (test code = 770-8) Lymphocytes (%) (Auto)2019-01-10 05:15:00 Test Item Value Reference Range Comments Automated blood lymphocyte count as percentage of 20.2 16.8-43.4 total leukocytes (test code = 736-9) Monocytes (%) (Auto)2019-01-10 05:15:00 Test Item Value Reference Range Comments Automated blood monocyte count as percentage of total 8.1 4.6-12.4 leukocytes (test code = 5905-5) Eosinophils (%) (Auto)2019-01-10 05:15:00 Test Item Value Reference Range Comments Automated blood eosinophil count as percentage of 0.9 0.7-7.8 total leukocytes (test code = 713-8) Basophils (%) (Auto)2019-01-10 05:15:00 Test Item Value Reference Range Comments Automated blood basophil count as percentage of total 0.3 0.2-1.2 leukocytes (test code = 706-2) Neutrophils # (Auto)2019-01-10 05:15:00 Test Item Value Reference Range Comments Blood neutrophils automated count (number/volume) 10.8 1.9-7.2 (test code = 751-8) Lymphocytes # (Auto)2019-01-10 05:15:00 Test Item Value Reference Range Comments Automated blood lymphocyte count (number/volume) (test 3.1 1.1-2.7 code = 731-0) Monocytes # (Auto)2019-01-10 05:15:00 Test Item Value Reference Range Comments Blood monocytes automated count (number/volume) (test 1.2 0.3-0.8 code = 742-7) Eosinophils # (Auto)2019-01-10 05:15:00 Test Item Value Reference Range Comments Automated blood eosinophil count (test code = 711-2) 0.1 0.0-0.5 Basophils # (Auto)2019-01-10 05:15:00 Test Item Value Reference Range Comments Automated blood basophil count (count/volume) (test 0.0 0.0-0.1 code = 704-7) White Blood Redyy0750-66-39 05:15:00 Test Item Value Reference Range Comments Blood leukocytes automated count (number/volume) (test 15.3 3.6-11.1 code = 6690-2) Red Blood Ioecr2278-06-98 05:15:00 Test Item Value Reference Range Comments Blood erythrocytes automated count (number/volume) 3.32 3.69-4.88 (test code = 789-8) Urine Amphetamine/Nyyfayvkjyzzcmr4401-52-50 06:45:00 Test Item Value Reference Range Comments Urine amphetamine+methamphetamine detection (test NEGATIVE Thhld>=1000 code = 22807-0) Urine Ziuvemwqzfjxp7549-81-06 06:45:00 Test Item Value Reference Range Comments Urine buprenorphine detection (test code = 3414-0) NEGATIVE Thhld>=5 Urine Knxfmqgypwaq0667-43-63 06:45:00 Test Item Value Reference Range Comments Urine barbiturates detection (test code = 3377-9) NEGATIVE Thhld>=200 Urine Benzodiazepines Owzzlq0053-24-68 06:45:00 Test Item Value Reference Range Comments Urine benzodiazepines detection (test code = NEGATIVE Thh ld>=200 3390-2) Urine THC Infuusclvhkfvu5869-99-33 06:45:00 Test Item Value Reference Range Comments Urine pbbac-0-dsponslhsxceoorgyerm (THC) detection POSITIVE Thhld>=50 (test code = 3426-4) Urine Cocaine Ztwvgm6671-37-68 06:45:00 Test Item Value Reference Range Comments Urine cocaine detection (test code = 3397-7) NEGATIVE Thh ld>=300 Urine Methadone Goloqt9040-03-71 06:45:00 Test Item Value Reference Range Comments Urine methadone detection (test code = 3773-9) NEGATIVE T hhld>=300 Urine Opiates Ajbbig3903-99-56 06:45:00 Test Item Value Reference Range Comments Urine opiates detection (test code = 3879-4) NEGATIVE Thh ld>=300 Urine Oxycodone Zwmmrp8701-51-24 06:45:00 Test Item Value Reference Range Comments Urine oxycodone detection (test code = 79345-3) NEGATIVE Thhld>=100 Urine MDMA Screen (Ecstasy)2019-01-09 06:45:00 Test Item Value Reference Range Comments MDMA ur screen (test code NEGATIVE Thhld>=500 This a ssay is intended as a = 13134-8) preliminary scre en. A more specific alterna tive chemical method must be u sed in order to obtain a confirm ed result. Gas chromatography s pectrometry (GC/MS) is the p referred confirmatory met hod and [facility] be [facility] by [facility] upon [facility]. Clinical consideration an d professional judgement should be applied to any drug of abuse te st result, particularly whe n preliminary results are used . Unconfirmed screening result s should be used for medical sally tment purposes only. Neutrophils % (Manual)2019-01-07 12:05:00 Test Item Value Reference Range Comments Blood band neutrophil count as percentage of total 71.0 43.2-71.5 leukocytes (test code = 68149-1) Lymphocytes % (Manual)2019-01-07 12:05:00 Test Item Value Reference Range Comments Blood lymphocytes/100 leukocytes (test code = 64757-8) 3.0 16.8-43.4 Atypical Lymphocytes % (Manual)2019-01-07 12:05:00 Test Item Value Reference Range Comments Blood lymphocytes variant/100 leukocytes (test code = 20.0 65152-1) Monocytes % (Manual)2019-01-07 12:05:00 Test Item Value Reference Range Comments Monocyte % (test code = 5905-5) 6.0 4.6-12.4 Neutrophils # (Manual)2019-01-07 12:05:00 Test Item Value Reference Range Comments Neutrophil count (test code = 751-8) 11.1 1.9-7.2 Lymphocytes # (Manual)2019-01-07 12:05:00 Test Item Value Reference Range Comments Absolute lymphocyte count (test code = 45072-7) 3.6 1.1-2.7 Monocytes # (Manual)2019-01-07 12:05:00 Test Item Value Reference Range Comments Absolute monocyte count (test code = 742-7) 0.9 0.3- 0.8 Eosinophils # (Manual)2019-01-07 12:05:00 Test Item Value Reference Range Comments Automated blood eosinophil count (test code = 711-2) 0.0 0.0-0.5 Basophils # (Manual)2019-01-07 12:05:00 Test Item Value Reference Range Comments Automated basophil count (test code = 704-7) 0.0 0.0 -0.1 Platelet Addzctpc1073-76-69 12:05:00 Test Item Value Reference Range Comments Blood platelets count by estimate (number/volume) INCREASED NORMAL (test code = 78743-0) Cvmfyimwhktp1636-61-95 12:05:00 Test Item Value Reference Range Comments Blood anisocytosis detection (test code = 67129-9) 1+ Nprcewixkvobxx5106-14-02 12:05:00 Test Item Value Reference Range Comments Automated blood poikilocytosis detection (test code = 1+ 53864-8) Pokwdrlkcvzq0602-16-73 12:05:00 Test Item Value Reference Range Comments Automated erythrocyte mean corpuscular volume (test 1+ code = 787-2) Tear Drop Ystzo1853-01-76 12:05:00 Test Item Value Reference Range Comments Teardrop cell detection (test code = 7791-7) 1+ Dfmawhzdbgtif0439-79-99 12:05:00 Test Item Value Reference Range Comments Blood polychromasia detection by light microscopy 1+ (test code = 63995-7) Treponema pallidum Tlijyras6106-46-95 12:05:00 Test Item Value Reference Range Comments T. pallidum ab (test code = 52764580) NONREACTIVE NONREACTIV E Encounters Start End Encounter Admission Attending Care Care Encounter Date/Time Date/Time Type Type Clinicians Facility Department ID 2019-01-09 2019-01-10 Inpatient [facility] [id number] 06:19:00 18:30:00 MASOOD 13 2018-09-04 2018-09-04 Outpatient [facility] [id number] 00:00:00 00:00:00 _[id number] Immunizations Ordered Immunization Filled Immunization Date Status Commen ts Refusal Reason Name Name Vaccination Unknown Completed Payers Payer Name Policy Type Policy Number Effective Date Expiration D ate [place] [id number] 2018 00:00:00 Social History This patient has no known social history. Vital Signs Vital Name Observation Time Observation Value Comments WEIGHT 2019-01-09 09:15:00 78.3 kg HEIGHT 2019-01-09 09:15:00 152.866986 cm WEIGHT 2019-01-09 06:19:00 78.3 kg HEIGHT 2019-01-09 06:19:00 152.803823 cm
== END 2020-09-30 03:05 | disposition left against medical advice (07) ==
LOC: ER 22:13
DX: J36 Peritonsillar abscess (principal); R50.9 Fever, unspecified; R06.02 Shortness of breath; R53.1 Weakness
CPT/HCPCS: 99285; 96375; 96365; 96368; 36415; 87040; 87070; 87880; 84703; 85025; 81025; 80053; 81001; 71046; 70491; J3490 ×2; J1100; J1956